=== PATIENT | male | born 1955 | race Caucasian/White ===

== ENCOUNTER 2020-04-21 07:39 | Outpatient (CLI) | payer OTHER, SELFPAY ==
[2020-04-21 08:20] LABS: Hematocrit 45.4 % (42.0-52.0); Hemoglobin 15.4 g/dL (14.0-18.0); Mean Corpuscular HGB Conc 33.9 g/dl (32-36); Mean Corpuscular Hemoglobin 31.5 pg (26-34); Mean Corpuscular Volume 92.8 fl (80-100); Mean Platelet Volume 9.6 fl (7.4-10.4); Platelet Count Result 200 k/mm3 (150-375); Red Blood Count 4.89 M/mm3 (4.6-6.20); White Blood Count 4.9 K/mm3 (4.5-10.0)
[2020-04-21 09:06] LABS: Alanine Aminotransferase 39 U/L (4-50); Albumin Level 4.6 g/dL (3.5-5.1); Alkaline Phosphatase 72 U/L (38-126); Aspartate Amino Transferase 39 U/L (17-59); Bilirubin,Total 0.3 mg/dL (0.2-1.3); Blood Urea Nitrogen 17 mg/dL (9-20); Calcium 9.4 mg/dL (8.4-10.2); Carbon Dioxide 30 mmol/L (22-30); Chloride 104 mmol/L (98-107); Cholesterol 118 mg/dL (0-200); Estimated Glomerular Filt Rate > 60; Glucose 112 mg/dL (75-110); HDL Direct 56 mg/dL; Potassium 4.7 mmol/L (3.4-5.0); Sodium 139 mmol/L (137-145); Triglycerides 70 mg/dL (<150)
[2020-04-21 09:17] LABS: LDL Cholesterol Direct 48 mg/dL
[2020-04-21 09:35] LABS: Prostate Specific Antigen 1.3 ng/mL (< OR = 4.0)
== END 2020-04-21 07:40 | disposition home or self-care (01) ==
PROVIDERS: PCP Family Medicine; Visit Provider Physician Assistant Medical
DX: Z12.5 Encounter for screening for malignant neoplasm of prostate (principal); I10 Essential (primary) hypertension; E78.2 Mixed hyperlipidemia
CPT/HCPCS: 36415; 80053; 80061; 84153; 85027; G0103

== ENCOUNTER → 2020-09-05 12:52 | Outpatient (CLI) | payer OTHER, SELFPAY ==
--- NOTE | ~2020-09-05 | XR_ITS ---
EXAMINATION: XR lumbar spine 2-3V DATE: 09/05/2020 13:12 INDICATION: Lumbar ago with sciatica, left side TECHNIQUE: Anteroposterior and lateral views of the lumbar spine, and cone-down lateral view of the l umbosacral junction were obtained. COMPARISON: None. FINDINGS: Lumbar levocurvature is noted. There is no fracture. There are 2 mm of anterolisthesis of L 3 on L4. The vertebral body heights are maintained. There is moderate loss of intervertebral disc spa ce height at L4-5 and L5-S1. There is severe facet osteoarthritis of the lower lumbar spine. Small de generative osteophytes project from the anterior endplates of multiple vertebral bodies. Calcified at herosclerosis is noted. The bowel gas pattern is normal. IMPRESSION: 1. Moderate lumbar spondylosis without acute findings. Reviewed, dictated and finalized at location A.
== END ==
PROVIDERS: PCP Family Medicine; Visit Provider Physician Assistant Medical
DX: M54.42 Lumbago with sciatica, left side (principal); G89.29 Other chronic pain; M47.816 Spondylosis without myelopathy or radiculopathy, lumbar region
CPT/HCPCS: 72100

== ENCOUNTER → 2020-09-08 06:58 | Outpatient (CLI) | payer OTHER, SELFPAY ==
--- NOTE | ~2020-09-08 | MR_ITS ---
EXAMINATION: MR lumbar spine wo con DATE: 09/08/2020 07:29 INDICATION: Lumbago with left-sided sciatica. TECHNIQUE: Magnetic resonance imaging (MRI) of the lumbar spine was performed without intravenous con trast. Sequences included sagittal T2-weighted FSE, sagittal T2-weighted FS FSE, sagittal T1-weighted FSE, and axial T2-weighted FSE. COMPARISON: Lumbar spine radiographs 09/05/2020 FINDINGS: There is 8 degrees levocurvature of lumbar spine. There is 3 mm anterolisthesis of L3 on L4 . There is mild chronic anterior wedging of T10 and T11 vertebral bodies. There is mildly decreased d isc height at L3-L4 and moderately decreased disc height at L4-L5. The distal spinal cord signal inte nsity is normal. The conus medullaris is at T12-L1. The following disc levels are specifically discus sed: L1-L2: There is a left foraminal protrusion. There is mild bilateral facet joint osteoarthritis. Ther e is mild left neural foraminal stenosis. There is no central canal stenosis. L2-L3: The disc is bulging. There is moderate bilateral facet joint osteoarthritis. There is mild farida ateral neural foraminal stenosis. There is mild central canal stenosis. L3-L4: The disc is bulging and has an annular fissure. There is severe bilateral facet joint osteoart hritis. There is moderate bilateral neural foraminal stenosis. There is moderate central canal stenos is. L4-L5: The disc is bulging and has an annular fissure. There is severe bilateral facet joint osteoart hritis. There is mild right and moderate left neural foraminal stenosis. There is mild central canal stenosis. L5-S1: The disc does not extend beyond the endplate margin. There is severe right and moderate left f acet joint osteoarthritis. There is no neural foraminal stenosis. There is no central canal stenosis. IMPRESSION: 1. Moderate lumbar spondylosis. Reviewed, dictated and finalized at location A.
== END ==
PROVIDERS: PCP Family Medicine; Visit Provider Physician Assistant Medical
DX: M54.42 Lumbago with sciatica, left side (principal); M47.896 Other spondylosis, lumbar region
CPT/HCPCS: 72148

== ENCOUNTER 2020-12-26 14:36 | Outpatient (CLI) | payer OTHER, SELFPAY ==
[2020-12-26 15:27] LABS: Hematocrit 48.5 % (42.0-52.0); Hemoglobin 16.2 g/dL (14.0-18.0); Mean Corpuscular HGB Conc 33.4 g/dl (32-36); Mean Corpuscular Hemoglobin 31.6 pg (26-34); Mean Corpuscular Volume 94.7 fl (80-100); Mean Platelet Volume 9.2 fl (7.4-10.4); Platelet Count Result 205 k/mm3 (150-375); Red Blood Count 5.12 M/mm3 (4.6-6.20); Red Cell Distribution Width 12.3 % (11.5-14.5); White Blood Count 7.3 K/mm3 (4.5-10.0)
[2020-12-26 15:39] LABS: Anion Gap 4 mmol/L (8-16); Blood Urea Nitrogen 28 mg/dL (9-20); Carbon Dioxide 34 mmol/L (22-30); Chloride 102 mmol/L (98-107); Estimated Glomerular Filt Rate > 60; Glucose 118 mg/dL (75-110); Potassium 4.7 mmol/L (3.4-5.0); Sodium 140 mmol/L (137-145)
[2020-12-26 16:10] LABS: Thyroid Stimulating Hormone 0.718 uIU/mL (0.465-4.680)
== END 2020-12-26 14:37 | disposition home or self-care (01) ==
PROVIDERS: PCP Family Medicine; Visit Provider Physician Assistant Medical
DX: I49.9 Cardiac arrhythmia, unspecified (principal)
CPT/HCPCS: 36415; 80048; 84443; 85027

== ENCOUNTER → 2021-09-21 15:02 | Outpatient (CLI) | payer OTHER, SELFPAY ==
--- NOTE | ~2021-09-21 | MR_ITS ---
EXAMINATION: MR lumbar spine wo [facility] EXAM DATE: 09/21/2021 16:36 INDICATION: Spondylolisthesis. TECHNIQUE: Multi-sequential, multiplanar MR images of the lumbar spine were obtained without contrast . Sagittal T1, T2, T2 fat saturation images. Axial T2 weighted images. Comparison is made to prior examination from 09/08/2020. FINDINGS: There is rudimentary L5-S1 disc. Mild to moderate loss of the L4-5 disc height, mild at L3- 4. There is 3 mm anterolisthesis L3 on L4. The vertebral bodies are otherwise aligned. The conus medu llaris terminates at the T12-L1 level and has normal signal intensity and morphology. There are no s uspicious marrow signal abnormalities. Paraspinal soft tissue is unremarkable. Mild lumbar levoscolio sis. Level by level evaluation: T12-L1: Disc does not extend beyond the endplate margin. Facet arthropathy: Mild. Neural foraminal stenosis: No stenosis. Central canal stenosis: No stenosis. L1-L2: Disc does not extend beyond the endplate margin. Facet arthropathy: Mild. Neural foraminal stenosis: No stenosis. Central canal stenosis: No stenosis. L2-L3: There is a mild diffuse disc bulge. Facet arthropathy: Mild to moderate. Neural foraminal stenosis: Mild to moderate right, mild left. Central canal stenosis: No stenosis. L3-L4: There is a moderate diffuse disc bulge. Facet arthropathy: Severe . Ligamentum flavum enlargement. Neural foraminal stenosis: Moderate to severe right, moderate left. Central canal stenosis: Moderate to severe. L4-L5: There is a mild to moderate diffuse disc bulge. Facet arthropathy: Moderate. Neural foraminal stenosis: Moderate bilateral. Central canal stenosis: Mild. L5-S1: There is a congenitally narrowed disc space. Facet arthropathy: Mild. Neural foraminal stenosis: Mild right. Central canal stenosis: No stenosis. Difficult to appreciate any significant interval change compared to 2019, although description of lev els may be slightly different. IMPRESSION: 1. L3-4 grade 1 anterolisthesis, moderate to severe central canal and right neural foraminal stenosi s. 2. Less spondylosis other levels. Reviewed, dictated and finalized at location B. IMPRESSION: 1. L3-4 grade 1 anterolisthesis, moderate to severe central canal and right ne ural foraminal stenosis. 2. Less spondylosis other levels.
== END ==
PROVIDERS: PCP Family Medicine
DX: M43.10 Spondylolisthesis, site unspecified (principal)
CPT/HCPCS: 72148

== ENCOUNTER → 2022-03-06 09:18 | Outpatient (CLI) | payer OTHER, SELFPAY ==
--- NOTE | ~2022-03-06 | XR_ITS ---
EXAMINATION: XR knee RT min 4V DATE: 03/06/2022 10:15 INDICATION: Unilateral primary osteoarthritis of the right knee TECHNIQUE: Four views of the right knee were obtained. COMPARISON: None. FINDINGS: Alignment is normal. No fracture or osteochondral lesion. There is mild joint space narrowi ng of the lateral compartment and the lateral patellofemoral compartment. No joint effusion/synovitis . Calcified atherosclerosis is noted. IMPRESSION: 1. Mild osteoarthritis. Reviewed, dictated and finalized at location A. IMPRESSION: 1. Mild osteoarthritis.
--- NOTE | ~2022-03-06 | XR_ITS ---
XR hip RT min 3V w AP pelvis DATE: 03/06/2022 10:15 INDICATION: Right hip pain, osteoarthritis TECHNIQUE: AP pelvis. AP and lateral views of right hip COMPARISON: None FINDINGS: There is rotatory mild levoscoliosis of the lumbar spine. Status post interbody and posterior spinal surgical fusion at L3-4. Severe degenerative disc disease at L4-5. 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 No pelvic fracture or bone destruction. The pubic symphysis and sacroiliac joints are intact. Hip joint spaces are symmetric and relatively well preserved. No fracture or dislocation, avascular n ecrosis or bone destruction of the right hip is detected. 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
== END ==
PROVIDERS: PCP Family Medicine; Visit Provider Family Medicine
DX: M16.11 Unilateral primary osteoarthritis, right hip (principal); M17.11 Unilateral primary osteoarthritis, right knee; Z98.1 Arthrodesis status; M51.36 Other intervertebral disc degeneration, lumbar region
CPT/HCPCS: 73502; 73564

== ENCOUNTER 2022-03-26 06:43 | Outpatient (CLI) | payer OTHER, SELFPAY ==
[2022-03-26 07:22] LABS: Hematocrit 40.6 % (42.0-52.0); Hemoglobin 12.3 g/dL (14.0-18.0); Mean Corpuscular HGB Conc 30.3 g/dl (32-36); Mean Corpuscular Hemoglobin 25.5 pg (26-34); Mean Corpuscular Volume 84.2 fl (80-100); Mean Platelet Volume 9.4 fl (7.4-10.4); Platelet Count Result 217 k/mm3 (150-375); Red Blood Count 4.82 M/mm3 (4.6-6.20); Red Cell Distribution Width 18.3 % (11.5-14.5); White Blood Count 5.7 K/mm3 (4.5-10.0)
[2022-03-26 07:33] LABS: Alanine Aminotransferase 25 U/L (4-50); Albumin Level 4.3 g/dL (3.5-5.1); Alkaline Phosphatase 82 U/L (38-126); Anion Gap 6 mmol/L (8-16); Aspartate Amino Transferase 33 U/L (17-59); Bilirubin,Total 0.3 mg/dL (0.2-1.3); Blood Urea Nitrogen 18 mg/dL (9-20); Calcium 8.4 mg/dL (8.4-10.2); Carbon Dioxide 28 mmol/L (22-30); Chloride 104 mmol/L (98-107); Cholesterol 185 mg/dL (0-200); Estimated Glomerular Filt Rate > 60; Glucose 125 mg/dL (65-110); HDL Direct 31 mg/dL; Potassium 4.6 mmol/L (3.4-5.0); Sodium 138 mmol/L (137-145); Triglycerides 195 mg/dL (<150)
[2022-03-26 07:44] LABS: LDL Cholesterol Direct 114 mg/dL
[2022-03-26 08:04] LABS: Thyroid Stimulating Hormone 0.601 uIU/mL (0.465-4.680)
[2022-03-26 12:21] LABS: Vitamin D 25 Hydroxy 43.1 ng/mL
== END 2022-03-26 06:44 | disposition home or self-care (01) ==
PROVIDERS: PCP Family Medicine; Visit Provider Nurse Practitioner Family
DX: E55.9 Vitamin D deficiency, unspecified (principal); I10 Essential (primary) hypertension; Z12.5 Encounter for screening for malignant neoplasm of prostate; E78.2 Mixed hyperlipidemia; Z13.29 Encounter for screening for other suspected endocrine disorder
CPT/HCPCS: 36415; 80053; 80061; 82306; 84153; 84443; 85027

== ENCOUNTER 2023-09-11 08:53 | Outpatient (CLI) | payer MEDICARE, SELFPAY ==
--- NOTE | ~2023-09-11 | XR_ITS ---
EXAMINATION: XR ribs BI 3V w CXR 2V DATE: 09/11/2023 09:42 INDICATION: Pleurodynia. TECHNIQUE: Frontal and lateral views of the chest and 2 views of the right ribs on 3 radiographs and 2 views of the left ribs on 3 radiographs were obtained. COMPARISON: CT abdomen and pelvis 04/03/2017 FINDINGS: CHEST TWO VIEWS: A calcified left lung nodule is consistent with old granulomatous disease. No pleura l effusion or pneumothorax. The heart size is normal. There is mild chronic anterior wedging of a mid thoracic vertebral bodies. There are changes of anterior and posterior fusion procedures in lumbar sp ine. BILATERAL RIBS: There is no rib fracture. IMPRESSION: 1. No rib fracture. Reviewed, dictated and finalized at location E. IMPRESSION: 1. No rib fracture.
== END 2023-09-11 08:54 ==
PROVIDERS: PCP Nurse Practitioner Family; Visit Provider Nurse Practitioner Family
DX: R07.81 Pleurodynia (principal); W11.XXXA Fall on and from ladder, initial encounter
CPT/HCPCS: 71046; 71110

== ENCOUNTER 2024-02-11 08:09 | Outpatient (CLI) | payer MEDICARE, OTHER, SELFPAY ==
--- NOTE | ~2024-02-11 | CT_ITS ---
CT Scan of the Chest without Contrast: Clinical Indication: Lung cancer screening, history of nicotine dependence Technique: Contiguous sections were acquired throughout the chest without intravenous contrast. Dose reduction technique was used on this scan by utilizing automated exposure control and iterative recon struction technique. The dose-length product (DLP) was 189.99 mGy-cm. Findings: There is no evidence of any significant mediastinal, hilar or axillary lymphadenopathy. Extensive cor onary artery calcifications are present. There is no evidence of pleural or pericardial effusion. The lungs are clear. No pulmonary nodules or infiltrates are noted. Images through the upper abdomen reveal no abnormalities. Impression: Lung RADS 1: Negative. 12 month follow-up screening CT advised. Reviewed, dictated and finalized at location . Impression: Lung RADS 1: Negative. 12 month follow-up screening CT advised.
== END 2024-02-11 08:10 | disposition home or self-care (01) ==
LOC: ANHIMG 08:12
PROVIDERS: PCP Family Medicine; Visit Provider Nurse Practitioner Family
DX: Z12.2 Encounter for screening for malignant neoplasm of respiratory organs (principal); Z87.891 Personal history of nicotine dependence
CPT/HCPCS: 71271

== ENCOUNTER 2025-06-25 14:06 | Emergency (ER) | payer MEDICARE, OTHER, SELFPAY ==
--- NOTE | ~2025-06-25 | CT_ITS ---
EXAMINATION: CT abdomen pelvis wo con DATE: 06/25/2025 15:53 INDICATION: lower abd pain, fever/chills, nausea and bloating TECHNIQUE: Computed tomography (CT) of the abdomen and pelvis was performed without intravenous contr ast. Automated exposure control and iterative reconstruction technique were employed. The dose-length product was 307.22 mGy-cm. COMPARISON: 04/03/2017. FINDINGS: Lower thorax: Moderate coronary artery calcifications. Small focus of tree-in-bud opacities in the de pendent and superior right lower lobe. Small focus of clustered air cysts in the dependent peripheral right lower lobe. Bilateral scar/atelectasis. Liver: Normal. Biliary/Gallbladder: Gallbladder is absent. No bile duct dilation. Pancreas: No mass or duct dilation. Mild peripancreatic edema. Spleen: Normal. Adrenals:Left adrenal adenoma, normal right adrenal gland. Kidneys: No suspicious mass, obstructing stone, or hydronephrosis. 6 mm right lower pole nonobstructi ng calcification. GI tract: Colonic wall thickening in the mid transverse colon. No small or large bowel dilation. Appe ndix not confidently visualized. Diverticulosis without diverticulitis. Mesentery/Peritoneum: Enlarged mesenteric lymph node. Suggestion of early fat halos surrounding centr al mesenteric nodes. Central mesenteric edema. Retroperitoneum: No mass. Atherosclerotic calcifications of intra-abdominal arterial vessels. Pelvis: Normal urinary bladder. Prostatomegaly with likely postsurgical change. Left inguinal pump. Soft Tissues: Small uncomplicated fat-containing left inguinal hernia Bones: No acute osseous finding. Uncomplicated appearing posterior and interbody fusion hardware at L3-4. IMPRESSION: Small focus of tree-in-bud opacities in the dependent right lower lobe, may represent minor aspiratio n or a small focus of infection. Peripheral cluster air cysts in the dependent right lower lobe, may represent a small focus of chroni c infectious/inflammatory change or small focus of honeycombing from early interstitial change. Central mesenteric edema and lymphadenopathy, suggestive of mesenteric panniculitis. Mild peripancreatic edema, in the absence of pancreatic laboratory abnormalities this is likely react yasir to the mesenteric process. Mid transverse colon wall thickening as can be seen with infectious, inflammatory, or ischemic coliti s. Reviewed, dictated and finalized at location K. IMPRESSION: Small focus of tree-in-bud opacities in the dependent right lower lobe, may rep resent minor aspiration or a small focus of infection. Peripheral cluster air cysts in the dependent right lower lobe, may represent a small focus of chronic infectious/inflammatory change or small focus of honeyc ombing from early interstitial change. Central mesenteric edema and lymphadenopathy, suggestive of mesenteric pannicul itis. Mild peripancreatic edema, in the absence of pancreatic laboratory abnormalitie s this is likely reactive to the mesenteric process. Mid transverse colon wall thickening as can be seen with infectious, inflammato ry, or ischemic colitis.
--- OUTSIDE RECORDS SUMMARY | 2025-06-25 14:09 | XMS_ITS | Encounter Summary ---
Author Organization [facility] Address [address] [place] [address] Care Team Providers Care Media Relations Director Name Role Phone Roberto Tran MD Primary Care Provider [phone] Encounter Details Date Type Department Care Team (Late st Contact Info) Description 10/09/2021 Prep for Procedure [place] Pre-Admission Testing [facility] [place], [place] [id number] Lino Marks MD [address] [facility] [address] [place] [address] Social History Tobacco Use Types Packs/Day Years Used Date Smoking Tobacco: Former Cigarettes 2 30 Smokeless Tobacco: Never Comments:quit cigs 5 years, now vapes with nicotine Alcohol Use Standard Drinks/Week Comments Not Currently 0 (1 standard drink = 0.6 oz pur e alcohol) Sex and Gender Information Value Date Recorded Sex Assigned at Not on file Legal Sex 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 No / Unsure 10/09/2021 10:16 AM GUSSET MAKER documented as of this encounter Functional Status * Calculated C-SSRS Risk Score (Lifetime/Recent) Answer Date of Assessment Author Status No Risk Indicated 10/09/2021 10:56 AM G[employer]SET MAKER Sonia Cortes RN Active * [place] Suicide Severity Rating Scale (Screener/Recent Self-Report) Question Answer Date of Assessment Author Status 1. Wish to be (Past 1 Month) No 10/09/2021 10:56 AM G[employer]SET MAKER Sonia Cortes RN Activ e 2. Non-Specific Active Suicidal Thoughts (Past 1 Month) No 10/09/2021 10:56 AM G[employer]SET MAKER Sonia Cortes RN Activ e 6. Suicidal Behavior (Lifetime) No 10/09/2021 10:56 AM G[employer]SET MAKER Sonia Cortes RN Activ e documented as of this encounter Plan of Treatment Not on file documented as of this encounter Results * CORONAVIRUS (COVID 19) (10/20/2021 9:15 AM GUSSET MAKER) SPEC DESCRIPTION NASAL 10/20/20 9:25 AM [facility] CORONAVIRUS SARS COV 2 PCR (RESP) NEGATIVE NEGATIVE 10/20/2021 7:12 PM [facility] Comment: THE SARS-CoV-2 TEST HAS BEEN AUTHORIZED BY THE FDA UNDER AN EUA FOR USE BY AUTHORIZED LABORATORIES. PERFORMED BY NUCLEIC ACID AMPLIFICATION PCR FIRST TEST NO 10/20/2021 9:25 AM [facility] EMPLOYED IN HEALTHCARE NO 10/20/2021 9:25 AM [facility] SYMPTOMATIC DEFINED BY CDC NO 10/20/2021 9:25 AM [facility] HOSPITALIZATION STATUS NO 10/20/2021 9:25 AM G[employer]SET MAKER [facility] PATIENT IN ICU NO 10/20/2021 9:25 AM G[employer]SET MAKER [facility] RESIDENT OF [facility] CARE NO 10/20/2021 9:25 AM G[employer]SET MAKER [facility] NASAL STRUCTURE / Unknown 10/20/2021 9:15 AM GUSSET MAKER us Lino Marks MD MICROBIOLOGY - GENERAL ORDER [place] Final Result [facility] [address] [place] [address], [facility] [address] [place] [address], documented in this encounter Visit Diagnoses Diagnosis Pre-op exam- Primary Preoperative examination, unspecified documented in this encounter Additional Health Concerns Infection Onset Date Last Indicated Resolved Time COVID-19 Rule Out 10/20/2021 10/20/2021 10/20/2021 7:13 PM G[employer]SET MAKER documented as of this encounter Care Teams Media Relations Director Relationship Specialty Start Date End Date Roberto Tran MD [address] [address] PCP - General FAMILY PRACTICE 10/09/21 documented as of this encounter
--- OUTSIDE RECORDS SUMMARY | 2025-06-25 14:09 | XMS_ITS | Clinical Summary ---
Author Organization [facility] Address [address] [place] [id number] Care Team Providers Care Metallographic Technician Name Role Phone Roberto Tran MD Primary Care Provider [phone] Allergies Active Allergy Reactions Criticality Noted Date Comments Bee Pollen Anaphylaxis High Bee stings Iodine Anaphylaxis High Shrimp Anaphylaxis High 08/10/2024 Medications traZODone (DESYREL) 50 mg tablet Take 1 tablet (50 mg total) by mouth nightly 1 9 Active VIIBRYD 10 mg tablet Take 1 tablet (10 mg total) by mouth every morning (Vilazodone) 0 9 Active vitamin E (AQUASOL E) 400 unit capsule Take 1 capsule (400 Units total) by mouth nightly Active clonazePAM (KlonoPIN) 0.5 mg tablet Take 1 tablet (0.5 mg total) by mouth nightly as needed for anxiety for up to 17 days 30 tablet 3 Active fluticasone propion-salmete roL (ADVAIR DISKUS) 250-50 mcg/dose diskus inhaler Inhale 1 puff 2 (two) times a day 3 Active montelukast (SINGULAIR) 10 mg tablet Take 1 tablet (10 mg total) by mouth nightly 3 Active celecoxib (CeleBREX) 50 mg capsule Take 1 capsule (50 mg total) by mouth 2 (two) times a day 4 Active fish oil/borage/flax /om3,6,9 1 (OMEGA 3-6-9 COMPLEX ORAL) Take 1 capsule by mouth nightly Active lisinopriL (PRINIVIL,ZESTR IL) 5 mg tablet TAKE 1 TABLET (5 MG TOTAL) BY MOUTH DAILY. 90 tablet 3 5 12/28/19 26 Active omeprazole (PriLOSEC) 40 mg capsule Take by mouth daily 4 Active HYDROcodone-jackie taminophen (NORCO) 7.5-325 mg per tablet TAKE 1 TABLET BY MOUTH EVERY 6 HOURS NEEDED FOR PAIN. FOLLOW UP EVERY 3 MONTHS 5 Active cyclobenzaprine (FLEXERIL) 10 mg tablet Take 1 tablet (10 mg total) by mouth 3 (three) times a day 5 Active albuterol HFA (PROVENTIL HFA,VENTOLIN HFA,PROAIR HFA) 90 mcg/actuation inhaler Inhale 2 puffs every 4 (four) hours as needed for shortness of breath or wheezing 5 Active albuterol 2.5 mg /3 mL (0.083 %) nebulizer solution Take 3 mL (2.5 mg total) by nebulization every 6 (six) hours as needed for wheezing or shortness of breath 5 Active Wegovy 0.5 mg/0.5 mL auto-injector Inject 0.5 mg under the skin every 7 days 5 Active metoprolol XL (TOPROL-XL) 50 mg extended release tablet Take 1 tablet (50 mg total) by mouth daily 90 tablet 3 5 05/10/20 26 Active Active Problems Problem Noted Date Diagnosed Date ED (erectile dysfunction) 08/24/2024 Other male erectile dysfunction 07/23/2024 Valvular heart disease 10/03/2023 Overview (10/03/2023): Mild TR on echo 11 January 2023. Acute blood loss anemia 01/07/2023 Acute retention of urine 01/05/2023 BPH with obstruction/lower urinary tract symptom s 12/06/2022 Benign prostatic hyperplasia with urinary obstru ction 11/13/2022 Overview (11/13/2022): Added automatically from request for surgery [id number] Occlusion of gallbladder 04/10/2017 Overview (04/19/2017): Gall bladder occluded Hypertension Overview (10/03/2023): On benazepril 10 b.i.d., Cardizem CD 240 mg daily and Toprol XL to 100 daily. Normal LVEF on echo 07 August 2021. Normal LVEF on echo 11 January 2023. Assessment & Plan (01/23/2022 8:30 AM CHARGE HISTOTECHNOLOGIST): Discussed that today's blood pressure is quite good on higher dose of Toprol XL. He is taking Toprol XL 75 in the morning and 25 in the evening because he thought it might help with his prostate problems--frequency and nocturia. There is no data on this and I advised him to take the Toprol XL 100 mg all at 1 time. He could take it in the morning or in the evening. Paroxysmal atrial fibrillation Overview (01/30/2024): On Xarelto 15 mg p.o. q.p.m.. Was on 20 mg daily. Normal LVEF on echo 11 January 2023. Assessment & Plan (01/23/2022 8:32 AM CHARGE HISTOTECHNOLOGIST): He will try to get records from primary care from the other hospital. Unfortunately, I could not find it on Care everywhere. Patient agreeable to getting another monitor for 2 weeks now to see how much AFib he has. He feels some kind of palpitations on a daily basis and he has cut back Xarelto to 15 mg daily because of a large bruise when he bumped his left upper extremity 1 time. If he has many episodes of atrial fibrillation, I may recommend that he goes back to 20 mg every p.m.. Indeed no bleeding issues on current dose of Xarelto. Assessment & Plan (07/20/2021 2:55 PM CDT): Apparently saw Dr. Lazcano in [facility] for atrial fibrillation. No echocardiogram was ever done even though it was scheduled. So, we should get an echocardiogram as soon as possible. Patient can tell when he is in atrial fibrillation as he feels a rapid heart rate. No dizziness, chest pain, shortness of breath or syncope with the episodes. We discussed his Rodolfo Vasc score of 2: Age, hypertension. He was worried about a persistent bruise on the left upper extremity. Otherwise, no rectal bleeding or persistent nose bleeds. Gross hematuria Coagulopathy Encounters Date Type Department Care Team Description 05/26/2025 10:15 AM CDT Office Visit [facility] [address] [facility] [address] [place] [id number] Jacqui Scott PA Rotator cuff insufficiency of left shoulder (Primary Dx); Primary osteoarthritis of left shoulder 05/07/2025 10:15 AM CDT Office Visit [facility] [employer] at [address] [place] [address] Jannette Almanzar NP Paroxysmal atrial fibrillation (HCC) (Primary Dx); Hypertension, unspecified type; Diastolic dysfunction 04/28/2025 Telephone [facility] [facility] at [address] [place] [address] Nicole Gil MA from Last 3 Months Surgical History Surgery Date Site/Laterality Comments APPENDECTOMY Appendectomy CHOLECYSTECTOMY SPINE SURGERY lumbar fusion L4 CARDIAC CATHETERIZATION COLONOSCOPY HERNIA REPAIR UHR HYDROCELE EXCISION / REPAIR 11/25/1972 - 11/24/1973 Right SINUS SURGERY deviated septum, uvla removed and T&A, soft palate TRANSURETHRAL RESECTION OF PROSTATE 12/06/2022 EXPLORATORY LAPAROTOMY 01/06/2023 repair of bladder perforation CARDIAC ELECTROPHYSIOLOGY MAPPING AND ABLATION 11/25/2022 - 11/24/2023 Medical History Medical History Date Comments Hx Other Medical Rt Hydrocoele Kidney stone Hypertension Hypercholesteremia GERD (gastroesophageal reflux disease) Depression Arthritis At risk for injury associate d with transurethral resection of prostate (TURP) Former smoker Family History Medical History Relation Name Comments Hypertension Brother Hypertension; Cancer Father Cancer -; Cause of : Cancer - Hyperlipidemia Mother Hyperlipidemi a; Other Mother Alive and well; Relation Name Status Comments Brother Father Mother Social History Tobacco Use Types Packs/Day Years Used Date Smoking Tobacco: Former Cigarettes Q uit: 1999 Smokeless Tobacco: Never Tobacco Cessation:Counseling Given: Not Answered Comments:Quit smoking in April 28, 2024; Alcohol Use Standard Drinks/Week Comments No 0 (1 standard drink = 0.6 oz pur e alcohol) Social Connection and Isolat ion Panel [NHANES] Answer Date Recorded In a typical week, how many times do you talk on the phone with family, friends, or neighbors? More than three times a week 01/07/2023 How often do you get togethe r with friends or relatives? More than three times a week 01/07/2023 Attends Scientology Services Not on file 01/07 Active Member of Clubs or Organizations Not on f ile 01/07/2023 Attends Club or Organization Meetings Not on wilfrid e 01/07/2023 Are you , , di vorced, , never , or living with a partner? 01/07/2023 AUDIT-C Answer Date Recorded Q1: How often do you have a drink containing alcohol? Never 05/26/2025 Q2: How many drinks containi ng alcohol do you have on a typical day when you are drinking? Patient does not drink Q3: How often do you have si x or more drinks on one occasion? Never 05/26/2025 Overall Financial Resource Strain (CARDIA) Answe r Date Recorded How hard is it for you to pa y for the very basics like food, housing, medical care, and heating? Not very hard 01/07/2023 Hunger Vital Sign Answer Date Recorded Within the past 12 months, y ou worried that your food would run out before you got the money to buy more. Never true 01/07/20 23 Within the past 12 months, t he food you bought just didn't last and you didn't have money to get more. Never true 01/07/2023 PRAPARE - Transportation Answer Date Re corded In the past 12 months, has l ack of transportation kept you from medical appointments or from getting medications? No 12/26 In the past 12 months, has l ack of transportation kept you from meetings, work, or from getting things needed for daily living? No 01/07/2023 Housing Stability Vital Sign Answer Pantera e Recorded In the last 12 months, was t here a time when you were not able to pay the mortgage or rent on time? No 01/07/2023 Number of Places Lived in the Last Year Not on f ile 01/07/2023 In the last 12 months, was t here a time when you did not have a steady place to sleep or slept in a nursing home (including now)? No 01/07/2023 Personal Safety Answer Date Recorded Have you ever been in or are you currently in a harmful physical or emotional relationship or is someone making you feel afraid or unsafe? Denies 08/24/2024 Sex and Gender Information Value Date Recorded Sex Assigned at Not on file Legal Sex Male 11:49 PM CHARGE HISTOTECHNOLOGIST Gender Identity Not on file Sexual Orientation Not on file Obstetrics History Last Filed Vital Signs Vital Sign Reading Time Taken Comments Blood Pressure 126/70 05/26/2025 10:12 AM CDT Pulse 75 05/26/2025 10:12 AM CDT Temperature 36.7 C (98 F) 2024 11:50 AM CDT Respiratory Rate 18 08/25/2024 6:57 AM CDT Oxygen Saturation 96% 08/25/2024 6:57 AM CDT Inhaled Oxygen Concentration - - Weight 87.1 kg (192 lb) 05/26/2025 10:12 AM CDT Height 170.2 cm (5' 7) 05/26/2025 10:12 AM CDT Body Mass Index 30.07 05/26/2025 10:12 AM CDT Plan of Treatment Health Maintenance Due Date Last Done Comments Colon Cancer Screening-Colonoscopy 1955 Depression Screening 1955 Hepatitis C Screening 1955 DTaP/Tdap/Td Vaccine (1 - Tdap) 1966 Hepatitis B Screening 1973 Zoster Vaccine (2 of 3) 11/08/2015 09/13/2015 Pneumococcal vaccine 65+ (2 of 2 - PPSV23) 12/20/2016 12/20/2015 Well Visit 65+ 2020 Prostate Cancer Screening-PSA 11/14/2024 11/14/2022 Influenza Vaccine (#1) 2025 7, 09/11/2016, 08/08/2016, Additional history exists Fall Risk Assessment 08/25/2025 08/25/2024 Abdominal Aortic Aneurysm (A AA) Screen Completed 01/08/2023, 01/06/2023 Medical Devices Implanted Type Area Horticulture Teacher Device Identifier Shelf Expiration Date Model / Serial / Lot [employer] Ams 700 Kit Accessory Penile Prosthesis [id number] - [id number] Implanted:Qty: 1 on 08/24/2024 by James Small MD at [facility] N/A: Penis [employer] Mile [id number] 07/06/2029 [id number] / / [id number] [employer] Ams 700 Lgx Ms Pump 18cm 3 Piece Inflatable Preconnect Infrapubic [id number] - [id number] Implanted:Qty: 1 on 08/24/2024 by James Small MD at [facility] N/A: Penis [employer] Mile [id number] 05/18/2026 [id number] / / [id number] [employer] Mile Ams 700 Ms Pump Preconnect Inflatable [place] Prosthesis 65ml [id number] - [id number] Implanted:Qty: 1 on 08/24/2024 by James Small MD at [facility] N/A: Penis [employer] Mile [id number] 04/21/2026 [id number] / / [id number] Procedures Procedure Name Priority Date/Time Associated Diagnosis Comments CT ARTHROCENTESIS ASPIR&/INJ MAJOR JT/BURSA W/O US Routine 05/26/2025 10:15 AM CDT 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 CT ABDOMEN PELVIS WO CONTRAST IP Routine 01/08/2023 1:52 PM CHARGE HISTOTECHNOLOGIST PSA DIAGNOSTIC Routine 11/14/2022 11:55 AM CHARGE HISTOTECHNOLOGIST Elevated PSA from Last 3 Months or Most Recently Relevant to Health Maintenance Results * CT ARTHROCENTESIS ASPIR&/INJ MAJOR JT/BURSA W/O US (05/26/2025 10:15 AM CDT) Narrative Jacqui Scott PA - 05/26/2025 10:15 AM CDT Jacqui Scott PA 05/26/2025 11:10 AM Large Joint (Hip, Knee, Shoulder) Injection: L subacromial bursa Performed by: Jacqui Scott PA Authorized by: Jacqui Scott PA Large Joint Injection/Aspiration: Consent Given by: Patient Site marked: the procedure site was marked Timeout: prior to procedure the correct patient, procedure, and site was verified Verbal consent obtained: Yes Supporting Documentation: Indications: Pain Procedure Details: Location: Shoulder Site: L subacromial bursa Prep: patient was prepped and draped in usual sterile fashion Prep: patient was prepped using a clean technique Needle Size: 22 G Approach: Posterior Ultrasound guided: No Fluroscopic guidance: No Medications: 80 mg methylPREDNISolone acetate 80 mg/mL; 3 mL lidocaine 20 mg/mL (2 %) Patient tolerance: Patient tolerated the procedure well with no immediate complications us Jacqui [facility] IN CLINIC/BEDSIDE HOME [facility] Final Result * CT Abdomen Pelvis WO Contrast (01/08/2023 1:52 PM CHARGE HISTOTECHNOLOGIST) Anatomical Region Laterality Modality Body N/A Computed Tomogra phy 01/08/2023 3:03 PM CHARGE HISTOTECHNOLOGIST Impressions 01/08/2023 3:03 PM CHARGE HISTOTECHNOLOGIST 1. DEPENDENT ATELECTASIS IN THE LUNG BASES AND TRACE BILATERAL PLEURAL EFFUSIONS. 2. CHOLECYSTECTOMY AND APPENDECTOMY. 3. AORTIC ATHEROSCLEROSIS. 4. SMALL AMOUNT OF FREE AIR IN THE ABDOMEN WHICH HAS SIGNIFICANTLY IMPROVED FROM PREVIOUS. 5. SURGICAL DRAIN IN THE PELVIS. 6. MILDLY DILATED LOOPS OF SMALL BOWEL ARE CONSISTENT WITH AN ILEUS. 7. LOND[place] CATHETER IN PLACE. 8. POSTERIOR SPINAL FUSION AT L3-L4. Electronically signed by: Sin Contreras M.D. Narrative 01/08/2023 3:03 PM CHARGE HISTOTECHNOLOGIST EXAMINATION: CT ABDOMEN PELVIS WO CONTRAST DATE: 01/08/2023 1:05 PM HISTORY: Abdominal pain. TECHNIQUE: Transaxial computed tomographic images of the abdomen and pelvis were obtained without the administration of intravenous contrast. Multiplanar coronal and sagittal images were reformatted. COMPARISON: 01/06/2023 FINDINGS: Scans through the lung bases demonstrate dependent atelectasis in both lower lobes. There are trace bilateral pleural effusions. The liver, pancreas and spleen appear normal. The gallbladder has been removed. A small amount of free air in the abdomen has significantly improved from previous. The kidneys and adrenal glands appear normal. No evidence of retroperitoneal adenopathy. There are atherosclerotic changes in the abdominal aorta. The appendix has been removed. There is a surgical drain in the pelvis. There are mildly dilated loops of small bowel. Findings are most suggestive of an ileus. No inflammatory lesion is seen. There is a London catheter in the urinary bladder. There has been posterior spinal fusion at L3-L4. Procedure Note Sin Contreras MD - 01/08/2023 EXAMINATION: CT ABDOMEN PELVIS WO CONTRAST DATE: 01/08/2023 1:05 PM HISTORY: Abdominal pain. TECHNIQUE: Transaxial computed tomographic images of the abdomen and pelvis were obtained without the administration of intravenous contrast. Multiplanar coronal and sagittal images were reformatted. COMPARISON: 01/06/2023 FINDINGS: Scans through the lung bases demonstrate dependent atelectasis in both lower lobes. There are trace bilateral pleural effusions. The liver, pancreas and spleen appear normal. The gallbladder has been removed. A small amount of free air in the abdomen has significantly improved from previous. The kidneys and adrenal glands appear normal. No evidence of retroperitoneal adenopathy. There are atherosclerotic changes in the abdominal aorta. The appendix has been removed. There is a surgical drain in the pelvis. There are mildly dilated loops of small bowel. Findings are most suggestive of an ileus. No inflammatory lesion is seen. There is a London catheter in the urinary bladder. There has been posterior spinal fusion at L3-L4. IMPRESSION: 1. DEPENDENT ATELECTASIS IN THE LUNG BASES AND TRACE BILATERAL PLEURAL EFFUSIONS. 2. CHOLECYSTECTOMY AND APPENDECTOMY. 3. AORTIC ATHEROSCLEROSIS. 4. SMALL AMOUNT OF FREE AIR IN THE ABDOMEN WHICH HAS SIGNIFICANTLY IMPROVED FROM PREVIOUS. 5. SURGICAL DRAIN IN THE PELVIS. 6. MILDLY DILATED LOOPS OF SMALL BOWEL ARE CONSISTENT WITH AN ILEUS. 7. LOND[place] CATHETER IN PLACE. 8. POSTERIOR SPINAL FUSION AT L3-L4. Electronically signed by: Sin Contreras M.D. us Deidre Rodriguez MD IMG CT PROCEDURES Final Resul t * PSA diagnostic (11/14/2022 11:55 AM CHARGE HISTOTECHNOLOGIST) PSA-Total 0.88 <=5.40 ng/mL JAROD VALLEJO Comment: Interpretive Data AGE SEX REFERENCE INTERVAL 0 minutes-150 years Female None 0 minutes-49 years Male None 50-59 years Male 0-3.90 60-69 years Male 0-5.40 70-79 years Male 0-6.20 80-150 years Male 0-6.20 The Filiberto PSA Total assay procedure was used. Results from different manufacturers or methods may not be comparable. Serial testing should be performed using the same method. Current interpretive data last revised 22. Blood 11/14/2022 11:5 5 AM CHARGE HISTOTECHNOLOGIST 11/14/2022 11:55 AM CHARGE HISTOTECHNOLOGIST James Small MD LAB BLOOD ORDERABLES nal Result JAROD [id number] [address] Department [place] [address] from Last 3 Months or Most Recently Relevant to Health Maintenance Insurance MEDICARE COMMERCIAL GENERIC MEDICARE [place] [id number] H & W MCR SUPPLEMENT Advance Directives For more information, please contact: [phone] * Full Code (Latest Code Status on File) Date Activated Date Inactivated Comments 08/24/2024 12:18 PM 08/25/2024 2:53 PM * Full Code Date Activated Date Inactivated Comments 01/05/2023 8:07 AM 01/14/2023 7:38 PM * Full Code Date Activated Date Inactivated Comments 12/06/2022 11:29 AM 12/07/2022 7:16 PM Care Teams Metallographic Technician Relationship Specialty Start Date End Date Roberto Tran MD PCP - General Family Medicine 05/20/23
--- OUTSIDE RECORDS SUMMARY | 2025-06-25 14:09 | XMS_ITS | Clinical Summary ---
Author Organization [facility] Address [address] [place] [address] Care Team Providers Care Baker Head Name Role Phone Roberto Tran MD Primary Care Provider [phone] Allergies Active Allergy Reactions Criticality Noted Date Comments Bee Pollen Other (see comment) 10/09/2021 Reaction: Unknown, Iodine Other (see comment) 10/09/2021 Reaction: unknown, Medications albuterol sulfate HFA 108 (90 Base) MCG/ACT inhaler Inhale 1 puff into the lungs daily. 08/23/2021 Active benazepril 10 MG tablet Take 1 tablet by mouth 2 (two) times a day. 10/02/2021 Active clonazePAM 0.5 MG tablet Take 1 tablet by mouth daily as needed. 08/07/2021 Active dutasteride 0.5 MG capsule Take 1 capsule by mouth daily. 10/01/2021 Active Eszopiclone 3 MG Tab Take 1 tablet by mouth nightly. 07/24/2021 Active furosemide 20 MG tablet Take 1 tablet by mouth daily. 07/03/2021 Active gabapentin 800 MG tablet Take 1 tablet by mouth 3 (three) times a day. 09/16/2021 Active metoprolol succinate ER 50 MG 24 hr tablet Take 1 tablet by mouth daily. 06/23/2021 Active MOVANTIK 25 MG tablet Take 1 tablet by mouth daily. 07/07/2021 Active omeprazole 40 MG capsule Take 1 capsule by mouth daily. 09/18/2021 Active rosuvastatin 20 MG tablet Take 1 tablet by mouth daily. 03/19/2021 Active tadalafil 5 MG tablet Take 1 tablet by mouth daily. 07/31/2021 Active tamsulosin 0.4 MG Cap Take 1 capsule by mouth nightly. 08/07/2021 Active traZODone 50 MG tablet Take 1 tablet by mouth daily. 08/18/2021 Active valACYclovir 500 MG tablet Take 1 tablet by mouth nightly. 09/18/2021 Active VIIBRYD 10 MG tablet Take 1 tablet by mouth daily. 08/01/2021 Active Echinacea 500 MG Cap Take 1 capsule by mouth daily. Active cetirizine 10 MG chewable tablet Chew 10 mg by mouth daily. Active Multiple Vitamin (MULTIVITAMIN ADULT OR) Active senna-docusate 8.6-50 MG tablet Take 1 tablet by mouth daily. 60 tablet 1 10/23/2021 Active HYDROcodone-jackie taminophen 5-325 MG tabletIndicatio ns:Chronic Pain,post op Take 1-2 tablets by mouth every 4 (four) hours as needed for Pain. Indications: Chronic Pain, post op 65 tablet 10/23/2021 Active Active Problems No known active problems Family History Medical History Relation Comments Cancer Father Hypertension Father DC Father Hypertension Mother Relation Status Comments Brother Alive Father mi Mother Son Alive Social History Tobacco Use Types Packs/Day Years Used Date Smoking Tobacco: Former Cigarettes 2 30 Smokeless Tobacco: Never Comments:quit cigs 5 years, now vapes with nicotine Alcohol Use Standard Drinks/Week Comments Not Currently 0 (1 standard drink = 0.6 oz pur e alcohol) Sex and Gender Information Value Date Recorded Sex Assigned at Not on file Legal Sex Male 9:51 PM IMPORT/EXPORT CLERK Gender Identity Not on file Sexual Orientation Not on file Last Filed Vital Signs Vital Sign Reading Time Taken Comments Blood Pressure 183/106 11/14/2021 12:47 PM IMPORT/EXPORT CLERK Pulse 80 11/14/2021 12:47 PM IMPORT/EXPORT CLERK Temperature 36.6 C (97.9 F) 11/14/2021 12:47 PM IMPORT/EXPORT CLERK Respiratory Rate 18 11/14/2021 12:4 7 PM IMPORT/EXPORT CLERK Oxygen Saturation 99% 11/14/2021 12: 47 PM IMPORT/EXPORT CLERK Inhaled Oxygen Concentration - - Weight 95.7 kg (210 lb 15.7 oz) 021 12:47 PM IMPORT/EXPORT CLERK Height 175.3 cm (5' 9) 11/14/2021 12:4 7 PM IMPORT/EXPORT CLERK Body Mass Index 31.16 11/14/2021 12:47 PM IMPORT/EXPORT CLERK Plan of Treatment Health Maintenance Due Date Last Done Comments Colorectal Cancer Screening Colonoscopy (10 Years) 1955 Hepatitis C 1973 DTaP, Tdap and Td Vaccines ( 1 - Tdap) 1974 Zoster Vaccines (2 of 3) 11/08/2015 09/13/2015 Pneumococcal Vaccine: 50+ Ye ars (2 of 2 - PPSV23) 12/20/2016 12/20/2015 COVID-19 Vaccine (1 - 2023-2 5 season) 2024 RSV Immunization or 60+ Years (1 - 1-dose 75+ series) 2030 Meningococcal B Vaccine Aged Out No l onger eligible based on patient's age to complete this topic Meningococcal Vaccine Aged Out No kenney doe eligible based on patient's age to complete this topic RSV Immunizations Under 20 Months Aged Out No longer eligible based on patient's age to complete this topic Goals Goal Patient Goal Type Associated Problems Recent Progress Patient-Stated? Author Safety - demonstrates understanding of home safety measures General No Marisela Gustafson RN Medical Devices Implanted Type Area Towel Cabinet Repairer Device Identifier Shelf Expiration Date Model / Serial / Lot Sst Tl Set Screw Implanted:Qty: 4 on 10/23/2021 by Lino Marks MD at [facility] N/A: Spine Lumbar NEW AGE MEDICAL OR-SETSCRE W / / Sst-Tl 6.5x50 Screw Implanted:Qty: 4 on 10/23/2021 by Lino Marks MD at [facility] N/A: Spine Lumbar NEW AGE MEDICAL PA-[id number] 0 / / F3d Straight Implanted:Qty: 2 on 10/23/2021 by Lino Marks MD at [facility] N/A: Spine Lumbar NEW AGE MEDICAL [id number] 11/09/2025 [id number] / / [id number] Sst 50 Billy Implanted:Qty: 2 on 10/23/2021 by Lino Marks MD at [facility] N/A: Spine Lumbar NEW AGE MEDICAL 55-IA-5 0 / / Explanted Type Area Towel Cabinet Repairer Device Identifier Shelf Expiration Date Model / Serial / Lot Bur Drill Neuro Benita 3.0mm X 3.8mm - [id number] Explanted:Qty: 1 on 10/23/2021 at [facility] Drill N/A: Spine Lumbar [employer] DIV BENITA VERONICA [id number] / / [facility] Advance Directives * Full Code (Latest Code Status on File) Date Activated Date Inactivated Comments 10/23/2021 4:20 PM 10/24/2021 4:29 PM Care Teams Baker Head Relationship Specialty Start Date End Date Roberto Tran MD [address] [place] [address] PCP - General FAMILY PRACTICE 10/09/21
--- OUTSIDE RECORDS SUMMARY | 2025-06-25 14:09 | XMS_ITS | Continuity of Care Document ---
Author Organization [facility] Address [address] [place] [address] [place] [address] Phone Care Team Providers Care Tool Mechanic Name Role Phone Calos Silva MD Unavailable Unavailable Advance Directives Directive Yes / No Effective Date File Name No Information Encounters Encounter Description Practice Location Reason(s) For Visit Diagnoses Date Provider Providers Copied on Encounter Formerly [facility], [address] [place], [place], [id number], [place] tel:[phone] SEC Rey TALLEY Professional No Information 0-200 5 Shira Live. [address] [facility] [address], [place], [place], [id number], [place]. tel:[phone] Family History Family Member Type Diagnosis Age At Onset No Information Payers Payer name Insurance type Covered democrat ID Authoriza tion(s) [employer] SOI CI [id number] Social History Type Description Quantity Date Captured [...]
--- OUTSIDE RECORDS SUMMARY | 2025-06-25 14:09 | XMS_ITS | Referral Summary ---
Author Organization [facility] Address [address] [place] [id number] Care Team Providers Care Stock Handler Floorperson Name Role Phone Roberto Tran MD Primary Care Provider [phone] Encounters Date Type Department Care Team Description 05/26/2025 10:15 AM CDT Office Visit [facility] Medicine [address] [facility] [address] [place] [phone] Jacqui Scott PA Rotator cuff insufficiency of left shoulder (Primary Dx); Primary osteoarthritis of left shoulder 05/07/2025 10:15 AM CDT Office Visit [facility] at [address] [place] [phone] Jannette Almanzar NP Paroxysmal atrial fibrillation (HCC) (Primary Dx); Hypertension, unspecified type; Diastolic dysfunction 04/28/2025 Telephone [place] [facility] at [address] [place] [phone] Nicole Gil MA from Last 3 Months Allergies Active Allergy Reactions Criticality Noted Date [...] (11/13/2022): Added automatically from request for surgery [id number] Occlusion of gallbladder 04/10/2017 Overview (04/19/2017): Gall bladder occluded Hypertension Overview (10/03/2023): On benazepril 10 b.i.d., Cardizem CD 240 mg daily and Toprol XL to 100 daily. Normal LVEF on echo 07 August 2021. Normal LVEF on echo 11 January 2023. Assessment & Plan (01/23/2022 8:30 AM ASPHALT DAUBER): Discussed that today's blood pressure is quite [...] 2023. Assessment & Plan (01/23/2022 8:32 AM ASPHALT DAUBER): He will try to get records from [...] PM CDT): Apparently saw Dr. Lazcano in [facility] for atrial fibrillation. No echocardiogram was ever [...] or persistent nose bleeds. Gross hematuria Coagulopathy Social History Tobacco Use Types Packs/Day Years [...] than three times a week 01/07/2023 Attends Shinto Services Not on file 01/07 Active Member [...] place to sleep or slept in a intermediate (including now)? No 01/07/2023 Personal Safety Answer Date Recorded Have you ever been in or are you currently in a harmful physical or emotional relationship or is someone making you feel afraid or unsafe? Denies 08/24/2024 Sex and Gender Information Value Date Recorded Sex Assigned at Not on file Legal Sex Male 11:49 PM ASPHALT DAUBER Gender Identity Not on file Sexual Orientation [...] 05/26/2025 10:12 AM CDT Plan of Treatment Not on file Medical Devices Implanted Type Area Body Finisher Device Identifier Shelf Expiration Date Model / Serial / Lot [employer] Mile Ams 700 Kit Accessory Penile Prosthesis [id number] - [id number] Implanted:Qty: 1 on 08/24/2024 by James Small MD at [facility] N/A: Penis [employer] Mile [id number] 07/06/2029 [id number] / / [id number] [employer] Mile Ams 700 Lgx Ms Pump 18cm 3 Piece Inflatable Preconnect Infrapubic [id number] - [id number] Implanted:Qty: 1 on 08/24/2024 by James Small MD at [facility] N/A: Penis [employer] Mile [id number] 05/18/2026 [id number] / / [id number] [employer] Mile Ams 700 Ms Pump Preconnect Inflatable [place] Prosthesis 65ml [id number] - [id number] Implanted:Qty: 1 on 08/24/2024 by James Small MD at [facility] N/A: Penis [employer] Mile [id number] 04/21/2026 [id number] / / [id number] Procedures Procedure Name Priority Date/Time Associated Diagnosis Comments ND ARTHROCENTESIS ASPIR&/INJ MAJOR JT/BURSA W/O US Routine 05/26/2025 10:15 AM CDT 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 CT ABDOMEN PELVIS WO CONTRAST IP Routine 01/08/2023 1:52 PM ASPHALT DAUBER PSA DIAGNOSTIC Routine 11/14/2022 11:55 AM ASPHALT DAUBER Elevated PSA from Last 3 Months or Most Recently Relevant to Health Maintenance Results * ND ARTHROCENTESIS ASPIR&/INJ MAJOR JT/BURSA W/O US (05/26/2025 [...] the procedure well with no immediate complications Jacqui LOVETT IN CL[facility]IC[facility]IDE [facility] Final Result * CT Abdomen Pelvis WO Contrast (01/08/2023 1:52 PM ASPHALT DAUBER) Anatomical Region Laterality Modality Body N/A Computed Tomogra phy 01/08/2023 3:03 PM ASPHALT DAUBER Impressions 01/08/2023 3:03 PM ASPHALT DAUBER 1. DEPENDENT ATELECTASIS IN THE LUNG BASES [...] Sin Contreras M.D. Narrative 01/08/2023 3:03 PM ASPHALT DAUBER EXAMINATION: CT ABDOMEN PELVIS WO CONTRAST DATE: [...] L3-L4. Electronically signed by: Sin Contreras M.D. Deidre Rodriguez MD IMG CT PROCEDURES Final Resul t * PSA diagnostic (11/14/2022 11:55 AM ASPHALT DAUBER) PSA-Total 0.88 <=5.40 ng/mL JAROD VALLEJO Comment: [...] revised 22. Blood 11/14/2022 11:5 5 AM ASPHALT DAUBER 11/14/2022 11:55 AM ASPHALT DAUBER James Small MD LAB BLOOD ORDERABLES [facility] Result JAROD VALLEJO [address] [place] [address] from Last 3 Months or Most Recently Relevant to Health Maintenance Insurance MEDICARE COMMERCIAL GENERIC MEDICARE LOCAL [facility] W MCR SUPPLEMENT Advance Directives For more information, please contact: [phone] * Full Code (Latest Code Status on File) Date Activated Date Inactivated Comments 08/24/2024 12:18 PM 08/25/2024 2:53 PM * Full Code Date Activated Date Inactivated Comments 01/05/2023 8:07 AM 01/14/2023 7:38 PM * Full Code Date Activated Date Inactivated Comments 12/06/2022 11:29 AM 12/07/2022 7:16 PM Care Teams Stock Handler Floorperson Relationship Specialty Start Date End Date Roberto Tran MD PCP - General Family Medicine 05/20/23
[2025-06-25 14:15] VITALS: BP 116/66; PULSE 85; RESP 16; TEMP 36.4; O2SAT 98
[2025-06-25 15:25] LABS: Hematocrit 45.0 % (42.0-52.0); Hemoglobin 15.2 g/dL (14.0-18.0); Immature Granulocyte Percent A 1.1 % (0-0.5); Lymphocytes Absolute Auto 2.22 K/mm3 (0.9-3.2); Mean Corpuscular HGB Conc 33.8 g/dl (32-36); Mean Corpuscular Hemoglobin 31.0 pg (26-34); Mean Corpuscular Volume 91.8 fl (80-100); Nucleated Red Blood Cells Absolute Auto 0.000 K/mm3 (0.0-0.012); Nucleated Red Blood Cells Perc 0.0 % (0.0-0.2); Platelet Count Result 221 k/mm3 (150-375); Red Blood Count 4.90 M/mm3 (4.6-6.20); White Blood Count 7.4 K/mm3 (4.5-10.0)
[2025-06-25 15:27] LABS: Add Urine Microscopic? NO; Appearance Urine Clear (Clear); Glucose Urine UA Negative (Negative); Leukocyte Esterase Ur Negative LEU/UL (Negative); Nitrate Urine Negative (Negative); Specific Grav Ur 1.008 (1.001-1.035)
--- NOTE | 2025-06-25 15:34 | ED_ITS ---
HPI - Nausea/Vomiting/Diarrhea General Chief complaint: Nausea/Vomiting/Diarrhea Stated complaint: N/V/D, abd pain, elevated bp Time Seen by Provider: 06/25/25 15:03 History of Present Illness HPI Narrative: 69-year-old male presenting to the emergency depart with chief complaints of lower abdominal pain, nausea, vomiting, diarrhea and fever and chills subjectively. Symptoms going on for last several days. States he has also been working in the hot sun getting some heat exhaustion. States he feels dehydrated. No urinary complaints. No trauma or injury. History of appendectomy and cholecystectomy in childhood. No abnormal history of diverticulitis or abnormal colonoscopies. Was otherwise in his normal state of health recently. He states he tried some electrolyte solutions at home and did feel better but now feels slightly worse. Endorses nausea and has been eating a bland diet and tolerating this but still having watery diarrhea. No recent antibiotic use. Related Data Home Medications ?Medication ?Instructions ?Recorded ?Confirmed ?Last Taken ?Type vilazodone 10 mg tablet (Viibryd) 10 mg PO DAILY 10/13/19 05/05/25 Unknown History cetirizine 10 mg capsule (All Day 10 mg PO DAILY PRN 04/05/21 05/05/25 Unknown History Allergy (cetirizine)) echinacea 380 mg capsule 380 mg PO DAILY 04/05/21 05/05/25 Unknown History trazodone 50 mg tablet 50 mg PO QHS PRN 04/05/21 05/05/25 Unknown History vitamin E (dl, acetate) 180 mg 45 mg PO DAILY 04/05/21 05/05/25 Unknown History (400 unit) capsule metoprolol succinate 50 mg 100 mg PO DAILY 02/22/22 05/05/25 Unknown History tablet,extended release 24 hr clonazepam 0.5 mg tablet 0.5 mg PO DAILY PRN 06/26/22 05/05/25 Unknown History turmeric 400 mg capsule 1,400 mg PO BID 01/30/24 05/05/25 Unknown History Allergies Allergy/AdvReac Type Severity Reaction Status Date / Time venom-honey bee Allergy Severe CARRIES Verified 06/25/25 14:24 EPI PEN levofloxacin Allergy Mild Unknown Verified 06/25/25 14:24 iodine Allergy Unknown Unknown Verified 06/25/25 14:24 Review of Systems 2 Review of Systems: As reviewed above in HPI PMFSH Past Medical History Medical History Hand abrasion, non-infected RUQ abdominal pain Sinusitis Weight gain Elevated glucose Elevated glucose Mixed hyperlipidemia Perla catheter in place Erectile dysfunction BMI 34.0-34.9,adult Osteoarthritis of right knee Osteoarthritis of right hip BMI greater than 30 BMI 32.0-32.9,adult BMI 31.0-31.9,adult BMI 29.0-29.9,adult Tobacco abuse BMI 28.0-28.9,adult BPH associated with nocturia Chronic left shoulder pain Chronic radicular lumbar pain High potassium Swelling Therapeutic opioid induced constipation Surgical History Surgical History History of prostatectomy H/O Spinal surgery Family History Family History Father Hypertension Family history of malignant neoplasm Mother Hypertension Family history of coronary artery disease Sibling No problems noted. Social History Social History Smoking status: Former smoker Tobacco type: cigarettes and e-cigarettes/vaping Second hand tobacco smoke exposure: Yes Smoking end date: 06/28/24 Additional smoking assessment comments: 27 years Alcohol intake: never Substance use: never Substance use type: does not use Do You Feel Safe in your Home?: Yes Lack of Transportation: No Lack of Food: Never True Current Housing: I Have Housing Concerned About Future Housing: No Difficulty Paying Gas/Electric Bills: No Difficulty Paying for Meds: No Currently Unemployed: No Education: Trade/Vocational Certificate Difficulty w/ Childcare or Family Care: No Living arrangements: with family Occupation/Education: retired 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 Mucous membranes moist. NECK: Supple. CHEST: [Clear to auscultation. No respiratory distress.] HEART: [Regular rate and rhythm]. No murmur heard. [Normal peripheral pulses.] ABDOMEN: Soft, reproducible tenderness to palpation of the lower midline abdomen, no overlying skin changes. Slightly distended, [No rigidity or guarding] EXTREMITIES: Normal range of motion. [No edema.] SKIN: Warm, dry, no rash. NEURO: [No focal deficits]. Alert and oriented [x3.] PSYCH: [Normal mood and affect.] Course Vital Signs Vital signs: Vital Signs Temperature 36.4 C L 06/25/25 14:15 Pulse Rate 85 06/25/25 14:15 Respiratory Rate 16 06/25/25 14:15 Blood Pressure 116/66 06/25/25 14:15 Pulse Oximetry 98 06/25/25 14:15 Oxygen Delivery Room Air 06/25/25 14:15 Temperature 36.4 C L 06/25/25 14:15 Pulse Rate 85 06/25/25 14:15 Respiratory Rate 16 06/25/25 14:15 Blood Pressure 116/66 06/25/25 14:15 Pulse Oximetry 98 06/25/25 14:15 Oxygen Delivery Room Air 06/25/25 14:15 MDM - Nausea/Vomiting/Diarrhea MDM Narrative Medical decision making narrative: 69-year-old male presenting to the emergency depart with chief complaints of lower abdominal pain, nausea, vomiting, diarrhea and fever and chills subjectively. Symptoms going on for last several days. States he has also been working in the hot sun getting some heat exhaustion. States he feels dehydrated. No urinary complaints. No trauma or injury. History of appendectomy and cholecystectomy in childhood. No abnormal history of diverticulitis or abnormal colonoscopies. Was otherwise in his normal state of health recently. He states he tried some electrolyte solutions at home and did feel better but now feels slightly worse. Endorses nausea and has been eating a bland diet and tolerating this but still having watery diarrhea. No recent antibiotic use. Patient does have a mildly tender abdominal examination with some distension. No rigidity or peritonitis. No fever, no tachycardia blood pressure concerns. Patient is of a constellation of symptoms that does sound like potentially viral gastroenteritis versus bacterial gastroenteritis. Other differentials include diverticulitis, intra-abdominal abscess or infection less likely. Electrolyte disturbances from diarrhea nauseousness also possible. Rhabdomyolysis from dehydration and being outside in the hot sun possible. Workup ordered including CPK, CMP, CBC, CT scan without contrast given his anaphylactic allergy to iodine contrast. He was given fluid resuscitation Zofran with Bentyl and re-evaluated. Patient felt much better after fluids and Bentyl. No longer nauseous. Laboratory studies showed no leukocytosis or anemia. Normal platelet count. Electrolytes are unremarkable. Normal creatinine, normal glucose and LFTs. CPK is negative. Urinalysis shows no signs of active infection. CT scan shows some minor aspiration or small focus of infection in the right lower lobe dependent region. Unrelated but possibly from his nausea and vomiting episodes recently. He also has mesenteric edema and lymphadenopathy suggestive of mesenteric panniculitis with mild transverse colon thickening consistent with inflammatory infectious process. Given patient's diarrhea, nauseousness and bloating we will treat this with antibiotics for potential infectious causes although we did discuss with the patient at bedside other potentially modalities of treatment including anti-inflammatories if this is not infectious in nature. Patient comfortable with the plan and given a course of Augmentin as well as Bentyl and Zofran for symptom control. He will follow-up with GI and his primary care provider and given return precautions. Medical Records Attestation: I reviewed the patient's medical records. Lab Data Attestation: I reviewed the patient's lab results. 06/25/25 15:15 06/25/25 15:15 Labs: Lab Results 06/25/25 Range/Units 15:15 WBC 7.4 (4.5-10.0) K/mm3 RBC 4.90 (4.6-6.20) M/mm3 Hgb 15.2 (14.0-18.0) g/dL Hct 45.0 (42.0-52.0) % MCV 91.8 (80-100) fl MCH 31.0 (26-34) pg MCHC 33.8 (32-36) g/dl RDW 13.7 (11.5-14.5) % Plt Count 221 (150-375) k/mm3 MPV 8.9 (7.4-10.4) fl Immature Gran % (Auto) 1.1 H (0-0.5) % Neut % (Auto) 57.2 (45.5-73.1) % Lymph % (Auto) 30.1 (18.3-44.2) % Meriwether % (Auto) 9.3 H (2.6-8.5) % Eos % (Auto) 1.8 (0-4.4) % Baso % (Auto) 0.5 (0.2-1.2) % Lymph # (Auto) 2.22 (0.9-3.2) K/mm3 Meriwether # (Auto) 0.7 H (0.1-0.6) K/mm3 Eos # (Auto) 0.1 (0-0.3) K/mm3 Baso # (Auto) 0.0 (0.0-0.1) K/mm3 Abs Immat Gran (auto) 0.08 H (0.00-0.031) K/mm3 Absolute Neuts (auto) 4.2 (1.3-6.7) K/mm3 Absolute Nucleated RBC 0.000 (0.0-0.012) K/mm3 Nucleated RBC % 0.0 (0.0-0.2) % Sodium 138 (137-145) mmol/L Potassium 4.1 (3.4-5.0) mmol/L Chloride 104 (98-107) mmol/L Carbon Dioxide 25 (22-30) mmol/L Anion Gap 9 (4-12) mmol/L BUN 14 (9-20) mg/dL Creatinine 0.76 (0.7-1.3) mg/dL Estim Creat Clear Calc 77 ml/min Estimated GFR > 60 (59 - ) Glucose 103 (65-110) mg/dL Calcium 8.8 (8.4-10.2) mg/dL Total Bilirubin 0.3 (0.2-1.3) mg/dL AST 34 (17-59) U/L ALT 36 (6-50) U/L Alkaline Phosphatase 88 (38-126) U/L Total Creatine Kinase 53 L (55-170) U/L Total Protein 7.2 (6.3-8.2) g/dL Albumin 4.2 (3.5-5.1) g/dL Lipase 81 (23-300) U/L Urine Color Yellow (Yellow) Urine Appearance Clear (Clear) Urine pH 5.5 (5.0-9.0) Ur Specific Hayward 1.008 (1.001-1.035) Urine Protein Negative (Negative) mg/dL Urine Glucose (UA) Negative (Negative) mg/dL Urine Ketones Negative (Negative) mg/dL Ur Blood (Man) Negative (Negative) Urine Nitrate Negative (Negative) Urine Bilirubin Negative (Negative) Urine Urobilinogen 0.2 (<2.0) mg/dL Leukocyte Esterase Rfl Negative (Negative) ANNABELLA/UL Imaging Data Attestation: I personally reviewed and interpreted this imaging study as follows: My impression: Impressions Abdomen/Pelvis CT 06/25/25 16:02 IMPRESSION: Small focus of tree-in-bud opacities in the dependent right lower lobe, may represent minor aspiration or a small focus of infection. Peripheral cluster air cysts in the dependent right lower lobe, may represent a small focus of chronic infectious/inflammatory change or small focus of honeycombing from early interstitial change. Central mesenteric edema and lymphadenopathy, suggestive of mesenteric panniculitis. Mild peripancreatic edema, in the absence of pancreatic laboratory abnormalities this is likely reactive to the mesenteric process. Mid transverse colon wall thickening as can be seen with infectious, inflammatory, or ischemic colitis. Discharge Plan Discharge Clinical Impression: Mesenteric panniculitis, Gastroenteritis Patient Disposition: Home Condition: Stable Instructions: Antibiotic Form, Gastroenteritis (ED), Acute Nausea and Vomiting (ED), Acute Diarrhea (ED) Additional Instructions: You have some inflammation in your GI tract consistent with mesenteric panniculitis or gastroenteritis. We will treat this with a combination antibiotic in addition to Zofran for nausea and Bentyl for abdominal bloating. Take medications as prescribed. Follow-up with regular doctor and we have also provided you a GI referral. Return with any worsening concerns or complaints. Patient Language: [place] Prescriptions: New dicyclomine 20 mg tablet 20 mg PO TID PRN (Reason: abdominal pain) Qty: 14 0RF ondansetron 4 mg tablet,disintegrating 4 mg PO Q8H PRN (Reason: nausea and vomiting) Qty: 20 0RF amoxicillin-pot clavulanate 875-125 mg tablet 1 tablet PO Q12H 7 Days Qty: 14 0RF No Action Viibryd 10 mg tablet 10 mg PO DAILY Narcan 4 mg/actuation spray,non-aerosol 4 mg NASAL Q2M Qty: 2 0RF Rx Instructions: spray 1 dose into ONE nostril; alternate nostrils w each dose until help arrives metoprolol succinate 50 mg tablet extended release 24 hr 100 mg PO DAILY clonazepam 0.5 mg tablet 0.5 mg PO DAILY PRN turmeric 400 mg capsule 1,400 mg PO BID All Day Allergy (cetirizine) 10 mg capsule 10 mg PO DAILY PRN echinacea 380 mg capsule 380 mg PO DAILY Rx Instructions: administer with meals trazodone 50 mg tablet 50 mg PO QHS PRN vitamin E (dl, acetate) 400 unit capsule 45 mg PO DAILY ferrous fumarate 325 mg (106 mg iron) tablet 325 mg PO DAILY Qty: 90 0RF lisinopril 5 mg tablet 5 mg PO .QD Qty: 30 0RF ferrous sulfate 325 mg (65 mg iron) tablet,delayed release (DR/EC) 325 mg PO DAILY Qty: 90 0RF cyclobenzaprine 10 mg tablet 10 mg PO TID Qty: 270 3RF omeprazole 40 mg capsule,delayed release(DR/EC) See Rx Instructions .ROUTE .COMPLEX Qty: 90 1RF Dose Instruction: TAKE 1 CAPSULE BY MOUTH EVERY DAY Rx Instructions: TAKE 1 CAPSULE BY MOUTH EVERY DAY montelukast 10 mg tablet See Rx Instructions .ROUTE .COMPLEX Qty: 90 1RF Dose Instruction: TAKE 1 TABLET BY MOUTH EVERY DAY Rx Instructions: TAKE 1 TABLET BY MOUTH EVERY DAY albuterol sulfate 2.5 mg /3 mL (0.083 %) solution for nebulization 2.5 mg inhalation Q4-6H PRN (Reason: shortness of breath or wheezing) Qty: 90 0RF Wegovy 0.5 mg/0.5 mL pen injector 0.5 mg subcut WEEKLY Qty: 2 3RF celecoxib 50 mg capsule See Rx Instructions .ROUTE .COMPLEX Qty: 60 2RF Dose Instruction: TAKE 1 CAPSULE BY MOUTH TWICE A DAY Rx Instructions: TAKE 1 CAPSULE BY MOUTH TWICE A DAY fluticasone propion-salmeterol 250-50 mcg/dose blister with device See Rx Instructions .ROUTE .COMPLEX Qty: 60 1RF Dose Instruction: INHALE 1 DOSE BY MOUTH TWICE DAILY Rx Instructions: INHALE 1 DOSE BY MOUTH TWICE DAILY hydrocodone-acetaminophen 7.5-325 mg tablet 1 tablet PO Q6H PRN (Reason: pain) Qty: 120 0RF Rx Instructions: follow up every 3mo albuterol sulfate 90 mcg/actuation HFA aerosol inhaler See Rx Instructions .ROUTE .COMPLEX Qty: 20.1 1RF Dose Instruction: INHALE 2 PUFFS BY MOUTH EVERY 4 HOURS NEEDED FOR SHORTNESS OF BREATH OR WHEEZING. Rx Instructions: INHALE 2 PUFFS BY MOUTH EVERY 4 HOURS NEEDED FOR SHORTNESS OF BREATH OR WHEEZING. Follow-up/Referrals: Jayden Mulligan MD [Physician] - 1 Week (Mesenteric panniculitis) Roberto Tran MD [Primary Care Provider] - Time of Disposition: 18:48
[2025-06-25 15:35] LABS: Alanine Aminotransferase 36 U/L (6-50); Albumin Level 4.2 g/dL (3.5-5.1); Alkaline Phosphatase 88 U/L (38-126); Anion Gap 9 mmol/L (4-12); Aspartate Amino Transferase 34 U/L (17-59); Bilirubin,Total 0.3 mg/dL (0.2-1.3); Blood Urea Nitrogen 14 mg/dL (9-20); Calcium 8.8 mg/dL (8.4-10.2); Carbon Dioxide 25 mmol/L (22-30); Chloride 104 mmol/L (98-107); Estimated CRCL calculation 77 ml/min; Estimated Glomerular Filt Rate > 60; Glucose 103 mg/dL (65-110); Lipase 81 U/L (23-300); Potassium 4.1 mmol/L (3.4-5.0); Sodium 138 mmol/L (137-145); Total Protein 7.2 g/dL (6.3-8.2)
--- NOTE | 2025-06-25 15:43 | PC.NURSE ---
pt to CT at this time
[2025-06-25] MEDS: LACTATED RINGERS 1,000 ML 999 ML IV CONT (15:59)
[2025-06-25] MEDS: DICYCLOMINE HCL 10 MG CAPSULE 20 MG PO (16:00)
[2025-06-25] MEDS: ONDANSETRON INJ 4 MG/2 ML VIAL IV PUSH (16:00)
[2025-06-25 16:15] LABS: Creatine Kinase 53 U/L (55-170)
--- OUTSIDE RECORDS SUMMARY | 2025-06-25 17:11 | XMS_ITS | Encounter Summary ---
Author Organization [facility] Address [address] [place] [address] Care Team Providers Care Director Of Catering Sales Name Role Phone Roberto Tran MD Primary Care Provider [phone] Encounter Details Date Type Department Care Team (Late st Contact Info) Description 10/09/2021 Prep for Procedure [facility] Pre-Admission Testing [facility] [place], [place] [id number] Lino Marks MD [address] [facility] [address] [place] [address] Social History Tobacco Use Types Packs/Day Years Used Date Smoking Tobacco: Former Cigarettes 2 30 Smokeless Tobacco: Never Comments:quit cigs 5 years, now vapes with nicotine Alcohol Use Standard Drinks/Week Comments Not Currently 0 (1 standard drink = 0.6 oz pur e alcohol) Sex and Gender Information Value Date Recorded Sex Assigned at Not on file Legal Sex Male 9:51 PM BOAT CANVAS MAKER INSTALLER Gender Identity Not on file Sexual Orientation Not on file COVID-19 Exposure Response Date Recorded In the last month, have you been in contact with someone who was confirmed or suspected to have Coronavirus / COVID-19? No / Unsure 10/09/2021 10:16 AM BOAT CANVAS MAKER INSTALLER documented as of this encounter Functional Status * Calculated C-SSRS Risk Score (Lifetime/Recent) Answer Date of Assessment Author Status No Risk Indicated 10/09/2021 10:56 AM BOAT CANVAS MAKER INSTALLER Sonia Cortes RN Active * [place]ins Suicide Severity Rating Scale (Screener/Recent Self-Report) Question Answer Date of Assessment Author Status 1. Wish to be (Past 1 Month) No 10/09/2021 10:56 AM BOAT CANVAS MAKER INSTALLER Sonia Cortes RN Activ e 2. Non-Specific Active Suicidal Thoughts (Past 1 Month) No 10/09/2021 10:56 AM BOAT CANVAS MAKER INSTALLER Sonia Cortes RN Activ e 6. Suicidal Behavior (Lifetime) No 10/09/2021 10:56 AM BOAT CANVAS MAKER INSTALLER Sonia Cortes RN Activ e documented as of this encounter Plan of Treatment Not on file documented as of this encounter Results * CORONAVIRUS (COVID 19) (10/20/2021 9:15 AM BOAT CANVAS MAKER INSTALLER) SPEC DESCRIPTION NASAL 10/20/20 9:[address] [facility] CORONAVIRUS SARS COV 2 PCR (RESP) NEGATIVE NEGATIVE 10/20/2021 7:12 PM [facility] Comment: THE SARS-CoV-2 TEST HAS BEEN AUTHORIZED BY THE FDA UNDER AN EUA FOR USE BY AUTHORIZED LABORATORIES. PERFORMED BY NUCLEIC ACID AMPLIFICATION PCR FIRST TEST NO 10/20/2021 9:[address] [facility] EMPLOYED IN HEALTHCARE NO 10/20/2021 9:[address] [facility] SYMPTOMATIC DEFINED BY CDC NO 10/20/2021 9:[address] [facility] HOSPITALIZATION STATUS NO 10/20/2021 9:25 AM BOAT CANVAS MAKER INSTALLER [facility] PATIENT IN ICU NO 10/20/2021 9:25 AM BOAT CANVAS MAKER INSTALLER [facility] RESIDENT OF [facility] CARE NO 10/20/2021 9:25 AM BOAT CANVAS MAKER INSTALLER [facility] NASAL STRUCTURE / Unknown 10/20/2021 9:15 AM BOAT CANVAS MAKER INSTALLER us Lino Marks MD MICROBIOLOGY - GENERAL ORDER [place] Final Result [facility] [address] [place] [address], [facility] [address] [place] [address], documented in this encounter Visit Diagnoses Diagnosis Pre-op exam- Primary Preoperative examination, unspecified documented in this encounter Additional Health Concerns Infection Onset Date Last Indicated Resolved Time COVID-19 Rule Out 10/20/2021 10/20/2021 10/20/2021 7:13 PM BOAT CANVAS MAKER INSTALLER documented as of this encounter Care Teams Director Of Catering Sales Relationship Specialty Start Date End Date Roberto Tran MD [address] [address] PCP - General FAMILY PRACTICE 10/09/21 documented as of this encounter
--- OUTSIDE RECORDS SUMMARY | 2025-06-25 17:11 | XMS_ITS | Clinical Summary ---
Author Organization [facility] Address [address] [place] [id number] Care Team Providers Care Artificial Flowers Starcher Name Role Phone Roberto Tran MD Primary Care Provider [phone] Allergies Active Allergy Reactions Criticality Noted Date [...] (11/13/2022): Added automatically from request for surgery [id number] Occlusion of gallbladder 04/10/2017 Overview (04/19/2017): Gall bladder occluded Hypertension Overview (10/03/2023): On benazepril 10 b.i.d., Cardizem CD 240 mg daily and Toprol XL to 100 daily. Normal LVEF on echo 07 August 2021. Normal LVEF on echo 11 January 2023. Assessment & Plan (01/23/2022 8:30 AM LUGGAGE ATTENDANT): Discussed that today's blood pressure is quite [...] 2023. Assessment & Plan (01/23/2022 8:32 AM LUGGAGE ATTENDANT): He will try to get records from [...] PM CDT): Apparently saw Dr. Lazcano in [facility] for atrial fibrillation. No echocardiogram was ever [...] Description 05/26/2025 10:15 AM CDT Office Visit [facility] Orthopedics and Sports Medicine [address] [facility] [address] [place] [phone] Jacqui Scott PA Rotator cuff insufficiency of left shoulder (Primary Dx); Primary osteoarthritis of left shoulder 05/07/2025 10:15 AM CDT Office Visit [facility] at [address] [place] [address] Jannette Almanzar NP Paroxysmal atrial fibrillation (HCC) (Primary Dx); Hypertension, unspecified type; Diastolic dysfunction 04/28/2025 Telephone [facility] at [address] [place] [address] Nicole Gil MA from Last [...] than three times a week 01/07/2023 Attends [employer] Not on file 01/07 Active Member [...] place to sleep or slept in a residential (including now)? No 01/07/2023 Personal Safety Answer Date Recorded Have you ever been in or are you currently in a harmful physical or emotional relationship or is someone making you feel afraid or unsafe? Denies 08/24/2024 Sex and Gender Information Value Date Recorded Sex Assigned at Not on file Legal Sex Male 11:49 PM LUGGAGE ATTENDANT Gender Identity Not on file Sexual Orientation [...] 01/08/2023, 01/06/2023 Medical Devices Implanted Type Area Vegetable Specker Device Identifier Shelf Expiration Date Model / Serial / Lot [place] [employer] Ams 700 Kit Accessory Penile Prosthesis [id number] - [id number] Implanted:Qty: 1 on 08/24/2024 by James Small MD at [facility] N/A: Penis [employer] [place] [employer] [id number] 07/06/2029 [id number] / / [id number] [employer] [place] [employer] Ams 700 Lgx Ms Pump 18cm 3 Piece Inflatable Preconnect Infrapubic [id number] - [id number] Implanted:Qty: 1 on 08/24/2024 by James Small MD at [facility] N/A: Penis [employer] [place] [employer] [id number] 05/18/2026 [id number] / / [id number] [employer] [place] [employer] Ams 700 Ms Pump Preconnect Inflatable [place] Prosthesis 65ml [id number] - [id number] Implanted:Qty: 1 on 08/24/2024 by James Small MD at [facility] N/A: Penis [place] [employer] Mile [id number] 04/21/2026 [id number] / / [id number] Procedures Procedure Name Priority Date/Time Associated Diagnosis Comments MD ARTHROCENTESIS ASPIR&/INJ MAJOR JT/BURSA W/O US Routine 05/26/2025 10:15 AM CDT 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 CT ABDOMEN PELVIS WO CONTRAST IP Routine 01/08/2023 1:52 PM LUGGAGE ATTENDANT PSA DIAGNOSTIC Routine 11/14/2022 11:55 AM LUGGAGE ATTENDANT Elevated PSA from Last 3 Months or Most Recently Relevant to Health Maintenance Results * MD ARTHROCENTESIS ASPIR&/INJ MAJOR JT/BURSA W/O US (05/26/2025 [...] Abdomen Pelvis WO Contrast (01/08/2023 1:52 PM LUGGAGE ATTENDANT) Anatomical Region Laterality Modality Body N/A Computed Tomogra phy 01/08/2023 3:03 PM LUGGAGE ATTENDANT Impressions 01/08/2023 3:03 PM LUGGAGE ATTENDANT 1. DEPENDENT ATELECTASIS IN THE LUNG BASES [...] Sin Contreras M.D. Narrative 01/08/2023 3:03 PM LUGGAGE ATTENDANT EXAMINATION: CT ABDOMEN PELVIS WO CONTRAST DATE: [...] t * PSA diagnostic (11/14/2022 11:55 AM LUGGAGE ATTENDANT) PSA-Total 0.88 <=5.40 ng/mL JAROD VALLEJO Comment: [...] revised 22. Blood 11/14/2022 11:5 5 AM LUGGAGE ATTENDANT 11/14/2022 11:55 AM LUGGAGE ATTENDANT James Small MD LAB BLOOD ORDERABLES nal Result JAROD [address] [place] [address] from Last 3 Months or Most Recently Relevant to Health Maintenance [place] [address] COMMERCIAL GENERIC MEDICARE [place] [id number] H & W MCR SUPPLEMENT Advance Directives For more information, please contact: [phone] * Full Code (Latest Code Status on File) Date Activated Date Inactivated Comments 08/24/2024 12:18 PM 08/25/2024 2:53 PM * Full Code Date Activated Date Inactivated Comments 01/05/2023 8:07 AM 01/14/2023 7:38 PM * Full Code Date Activated Date Inactivated Comments 12/06/2022 11:29 AM 12/07/2022 7:16 PM Care Teams Artificial Flowers Starcher Relationship Specialty Start Date End Date Roberto Tran MD PCP - General Family Medicine 05/20/23
--- OUTSIDE RECORDS SUMMARY | 2025-06-25 17:11 | XMS_ITS | Clinical Summary ---
Author Organization [facility] Address [address] [place] [address] Care Team Providers Care Ceramic Research Engineer Name Role Phone Roberto Tran MD Primary Care Provider [phone] Allergies Active Allergy Reactions Criticality Noted Date [...] History Relation Comments Cancer Father Hypertension Father [place] Father Hypertension Mother Relation Status Comments Brother [...] on file Legal Sex Male 9:51 PM SPORTING GOODS SALES MANAGER Gender Identity Not on file Sexual Orientation Not on file Last Filed Vital Signs Vital Sign Reading Time Taken Comments Blood Pressure 183/106 11/14/2021 12:47 PM SPORTING GOODS SALES MANAGER Pulse 80 11/14/2021 12:47 PM SPORTING GOODS SALES MANAGER Temperature 36.6 C (97.9 F) 11/14/2021 12:47 PM SPORTING GOODS SALES MANAGER Respiratory Rate 18 11/14/2021 12:4 7 PM SPORTING GOODS SALES MANAGER Oxygen Saturation 99% 11/14/2021 12: 47 PM SPORTING GOODS SALES MANAGER Inhaled Oxygen Concentration - - Weight 95.7 kg (210 lb 15.7 oz) 021 12:47 PM SPORTING GOODS SALES MANAGER Height 175.3 cm (5' 9) 11/14/2021 12:4 7 PM SPORTING GOODS SALES MANAGER Body Mass Index 31.16 11/14/2021 12:47 PM SPORTING GOODS SALES MANAGER Plan of Treatment Health Maintenance Due Date [...] Gustafson RN Medical Devices Implanted Type Area Minibus Driver Device Identifier Shelf Expiration Date Model / Serial / Lot Sst Tl Set Screw Implanted:Qty: 4 on 10/23/2021 by Lino Marks MD at [facility] N/A: Spine Lumbar NEW AGE MEDICAL OR-SETSCRE W / / Sst-Tl 6.5x50 Screw Implanted:Qty: 4 on 10/23/2021 by Lino Marks MD at [facility] N/A: Spine Lumbar NEW AGE MEDICAL PA-65-5 0 / / F3d Straight Implanted:Qty: 2 on 10/23/2021 by Lino Marks MD at [facility] N/A: Spine Lumbar NEW AGE MEDICAL [id number] 11/09/2025 [id number] / / [id number] Sst 50 Billy Implanted:Qty: 2 on 10/23/2021 by Lino Marks MD at [facility] N/A: Spine Lumbar NEW AGE MEDICAL 55-NH-5 0 / / Explanted Type Area Minibus Driver Device Identifier Shelf Expiration Date Model / Serial / Lot Bur Drill Neuro Benita 3.0mm X 3.8mm - [id number] Explanted:Qty: 1 on 10/23/2021 at [facility] Drill N/A: Spine Lumbar [employer] - DIV BENITA VERONICA [id number] 30 / / [facility] Advance Directives * Full Code (Latest Code Status on File) Date Activated Date Inactivated Comments 10/23/2021 4:20 PM 10/24/2021 4:29 PM Care Teams Ceramic Research Engineer Relationship Specialty Start Date End Date Roberto Tran MD [address] [place] [address] PCP - General FAMILY PRACTICE 10/09/21
--- OUTSIDE RECORDS SUMMARY | 2025-06-25 17:11 | XMS_ITS | Referral Summary ---
Author Organization [facility] Address [address] [place] [address] Care Team Providers Care Merchandise Worker Name Role Phone Roberto Tran MD Primary Care Provider Encounters Date Type Department Care Team Description 05/26/2025 10:15 AM CDT Office Visit [facility] Group Orthopedics and Sports Medicine [address] [facility] [address] [place] [phone] Jacqui Scott PA Rotator cuff insufficiency of left shoulder (Primary Dx); Primary osteoarthritis of left shoulder 05/07/2025 10:15 AM CDT Office Visit [facility] at [address] [place] [phone] Jannette Almanzar NP Paroxysmal atrial fibrillation (HCC) (Primary Dx); Hypertension, unspecified type; Diastolic dysfunction 04/28/2025 Telephone [facility] at [address] [place] [phone] Nicole Gil MA from Last 3 Months [...] (11/13/2022): Added automatically from request for surgery [id number] Occlusion of gallbladder 04/10/2017 Overview (04/19/2017): Gall bladder occluded Hypertension Overview (10/03/2023): On benazepril 10 b.i.d., Cardizem CD 240 mg daily and Toprol XL to 100 daily. Normal LVEF on echo 07 August 2021. Normal LVEF on echo 11 January 2023. Assessment & Plan (01/23/2022 8:30 AM EXPELLER OPERATOR): Discussed that today's blood pressure is quite [...] 2023. Assessment & Plan (01/23/2022 8:32 AM EXPELLER OPERATOR): He will try to get records from [...] PM CDT): [facility]. No echocardiogram was [...] than three times a week 01/07/2023 Attends [employer] [facility] Not on file 01/07 Active Member [...] place to sleep or slept in a correction (including now)? No 01/07/2023 Personal Safety Answer Date Recorded Have you ever been in or are you currently in a harmful physical or emotional relationship or is someone making you feel afraid or unsafe? Denies 08/24/2024 Sex and Gender Information Value Date Recorded Sex Assigned at Not on file Legal Sex Male 11:49 PM EXPELLER OPERATOR Gender Identity Not on file Sexual Orientation [...] on file Medical Devices Implanted Type Area Mold Checker Device Identifier Shelf Expiration Date Model / Serial / Lot [employer] Mile Ams 700 Kit Accessory Penile Prosthesis [id number] - [id number] Implanted:Qty: 1 on 08/24/2024 by James Small MD at [facility] N/A: Penis [employer] Mile [id number] 07/06/2029 [id number] / / [id number] [employer] Mile Ams 700 Lgx Ms Pump 18cm 3 Piece Inflatable Preconnect Infrapubic [id number] - [id number] Implanted:Qty: 1 on 08/24/2024 by James Small MD at [facility] N/A: Penis [employer] Mile [id number] 05/18/2026 [id number] / / [id number] [employer] Mile Ams 700 Ms Pump Preconnect Inflatable [place] Prosthesis 65ml [id number] - [id number] Implanted:Qty: 1 on 08/24/2024 by James Small MD at [facility] N/A: Penis [employer] Mile [id number] 04/21/2026 [id number] / / [id number] Procedures Procedure Name Priority Date/Time Associated Diagnosis Comments [place] ARTHROCENTESIS ASPIR&/INJ MAJOR JT/BURSA W/O US Routine 05/26/2025 10:15 AM CDT 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 CT ABDOMEN PELVIS WO CONTRAST IP Routine 01/08/2023 1:52 PM EXPELLER OPERATOR PSA DIAGNOSTIC Routine 11/14/2022 11:55 AM EXPELLER OPERATOR Elevated PSA from Last 3 Months or Most Recently Relevant to Health Maintenance Results * NV ARTHROCENTESIS ASPIR&/INJ MAJOR JT/BURSA W/O US (05/26/2025 [...] Abdomen Pelvis WO Contrast (01/08/2023 1:52 PM EXPELLER OPERATOR) Anatomical Region Laterality Modality Body N/A Computed Tomogra phy 01/08/2023 3:03 PM EXPELLER OPERATOR Impressions 01/08/2023 3:03 PM EXPELLER OPERATOR 1. DEPENDENT ATELECTASIS IN THE LUNG BASES [...] Sin Contreras M.D. Narrative 01/08/2023 3:03 PM EXPELLER OPERATOR EXAMINATION: CT ABDOMEN PELVIS WO CONTRAST DATE: [...] t * PSA diagnostic (11/14/2022 11:55 AM EXPELLER OPERATOR) PSA-Total 0.88 <=5.40 ng/mL JAROD VALLEJO Comment: [...] revised 22. Blood 11/14/2022 11:5 5 AM EXPELLER OPERATOR 11/14/2022 11:55 AM EXPELLER OPERATOR James Small MD LAB BLOOD ORDERABLES [facility] Result JAROD VALLEJO [address] Department [place] [address] from Last 3 Months or Most Recently Relevant to Health Maintenance Insurance MEDICARE COMMERCIAL GENERIC MEDICARE LOCAL [facility] H & W MCR SUPPLEMENT Advance Directives For more information, please contact: [phone] * Full Code (Latest Code Status on File) Date Activated Date Inactivated Comments 08/24/2024 12:18 PM 08/25/2024 2:53 PM * Full Code Date Activated Date Inactivated Comments 01/05/2023 8:07 AM 01/14/2023 7:38 PM * Full Code Date Activated Date Inactivated Comments 12/06/2022 11:29 AM 12/07/2022 7:16 PM Care Teams Merchandise Worker Relationship Specialty Start Date End Date Roberto Tran MD PCP - General Family Medicine 05/20/23
--- OUTSIDE RECORDS SUMMARY | 2025-06-25 17:11 | XMS_ITS | Continuity of Care Document ---
Author Organization [facility] Address [address] [place] [address] [place] [address] Phone Care Team Providers Care Customer Expert Name Role Phone Calos Silva MD Unavailable Unavailable Advance Directives Directive Yes / No Effective Date File Name No Information Encounters Encounter Description Practice Location Reason(s) For Visit Diagnoses Date Provider Providers Copied on Encounter [facility], [address], [place], [place], [id number], [place] tel:[phone] SEC Rey TALLEY Professional No Information 0-200 5 Shira Live. [address] [facility] [address], [place], [place], [id number], [place]. tel:[phone] Family History Family Member Type Diagnosis Age At Onset No Information Payers Payer name Insurance type Covered democrat ID Authoriza tion(s) [employer] SOI CI [id number] Social History Type Description Quantity Date Captured [...]
== END 2025-06-25 19:07 | disposition home or self-care (01) ==
PROVIDERS: Emergency Provider Student in an Organized Health Care Education/Training Program; PCP Family Medicine
DX: K65.4 Sclerosing mesenteritis (principal); K52.9 Noninfective gastroenteritis and colitis, unspecified; E78.2 Mixed hyperlipidemia; M16.11 Unilateral primary osteoarthritis, right hip; M17.11 Unilateral primary osteoarthritis, right knee; Z87.891 Personal history of nicotine dependence; Z90.79 Acquired absence of other genital organ(s); Z90.49 Acquired absence of other specified parts of digestive tract; Z79.899 Other long term (current) drug therapy
CPT/HCPCS: 36415; 74176; 80053; 81003; 82550; 83690; 85025; 96361; 96374; 99284; A9270; J2405; J7120

== ENCOUNTER 2025-09-15 13:08 | Emergency (ER) | payer MEDICARE, OTHER, SELFPAY ==
--- OUTSIDE RECORDS SUMMARY | 2004-12-04 09:30 | XMS_ITS | Continuity of Care Document ---
Author Organization [facility] Address [address] [place] [address] [place] [address] Phone Care Team Providers Care Electrical Fitter Name Role Phone Calos Silva MD Unavailable Unavailable Advance Directives Directive Yes / No Effective Date File Name No Information Encounters Encounter Description Practice Location Reason(s) For Visit Diagnoses Date Provider Providers Copied on Encounter [facility], [address], [place], [place], [id number], [place] tel:[phone] [address] Rey TALLEY Professional No Information 0-200 5 Shira Live. [address] [facility], [facility], [place], [place], [id number], [place]. tel:[phone] Family History Family Member Type Diagnosis Age At Onset No Information Payers Payer name Insurance type Covered constitution party ID Authoriza tion(s) [employer] SOI CI [id number] Social History Type Description Quantity Date Captured Comments Sex Male Smoking Status No Information Chief Complaint And Reason For Visit No Information Reason For Referral Reason For Referral No Information History Of Present Illness Encounter Date Complaint History Of Prese nt Illness No Information Functional Status Date Functional Assessmen t No Information Instructions Date Instruction Additional Infor mation No Information Assessments Type Assessment Date No Information Patient Care Teams Name Effective Dates (start - stop) Status Members No Information
--- NOTE | ~2025-09-15 | XR_ITS ---
EXAMINATION: XR forearm LT 2V DATE: 09/15/2025 15:07 INDICATION: Left forearm injury post fall TECHNIQUE: AP an lateral views of the left forearm were obtained. COMPARISON: none FINDINGS: Alignment is normal. No fracture. Mild polyarticular osteoarthritis at the left elbow and multiple joints at the left wrist and carpus.. Soft tissues are unremarkable. No left elbow joint effusion. IMPRESSION: 1. No acute osseous abnormality. Reviewed, dictated and finalized at location A.
--- NOTE | ~2025-09-15 | CT_ITS ---
CT chest abdomen pelvis wo con HISTORY: hip pain, back pain, fall . COMPARISON: None. TECHNIQUE: Axial images of the chest, abdomen and pelvis were obtained without and with infusion of intravenous contrast which limits diagnostic sensitivity. FINDINGS: CT CHEST: The examination demonstrates no pulmonary nodules, infiltrates and/or effusions. No pathologically enlarged hilar or mediastinal lymphadenopathy is seen. Cardiac size and mediastinal configuration are normal in appearance. Coronary artery calcifications are noted. The pulmonary artery and thoracic aorta are normal in caliber and patency. Osseous structures are intact. The visualized organs of the upper abdomen are unremarkable. IMPRESSION: No acute cardiopulmonary process. CT abdomen and pelvis with contrast: The liver parenchyma is unremarkable. No intrahepatic mass or ductal dilatation is evident. The patient has had a cholecystectomy. The pancreas and spleen are normal in appearance. The adrenal glands are symmetric in size. The kidneys demonstrate symmetric uptake and excretion of contrast. No cystic mass is evident. There is no solid mass. There is no hydronephrosis. Evaluation of the stomach and bowel loops are limited due to lack of oral contrast. Moderate fecal load suggestive of constipation. The bladder and rectum are normal. No free intraperitoneal fluid or air is evident. There is no significant retroperitoneal lymphadenopathy. The aorta, visceral vessels and renal arteries demonstrate normal caliber and patency. The lower thoracic and lumbar vertebrae are in normal alignment. IMPRESSION: No acute abnormality is noted in the abdomen and pelvis. All CT scans at this facility are performed using low dose modulation techniques as appropriate to perform exam including the following: automated exposure control; use of iterative reconstruction technique; adjustment of the mA and/or kV according to patient size (this includes techniques or standardized protocols for targeted exams where dose is matched to indication/reason for exam) Reviewed, dictated and finalized at location S. IMPRESSION: No acute cardiopulmonary process. CT abdomen and pelvis with contrast: The liver parenchyma is unremarkable. No intrahepatic mass or ductal dilatation is evident. The patient has had a cholecystectomy. The pancreas and spleen are normal in appearance. The adrenal glands are symmetric in size. The kidneys demonstrate symmetric uptake and excretion of contrast. No cystic m ass is evident. There is no solid mass. There is no hydronephrosis. Evaluation of the stomach and bowel loops are limited due to lack of oral contr ast. Moderate fecal load suggestive of constipation. The bladder and rectum are normal. No free intraperitoneal fluid or air is evid ent. There is no significant retroperitoneal lymphadenopathy. The aorta, visceral vessels and renal arteries demonstrate normal caliber and p atency. The lower thoracic and lumbar vertebrae are in normal alignment. IMPRESSION: No acute abnormality is noted in the abdomen and pelvis. All CT scans at this facility are performed using low dose modulation techniqu es as appropriate to perform exam including the following: automated exposure c ontrol; use of iterative reconstruction technique; adjustment of the mA and/or kV according to patient size (this includes techniques or standardized protocol s for targeted exams where dose is matched to indication/reason for exam)
--- NOTE | ~2025-09-15 | CT_ITS ---
EXAMINATION: CT cervical spine wo con DATE: 09/15/2025 14:50 INDICATION: Neck pain after fall from height. TECHNIQUE: Computed tomography (CT) of the cervical spine was performed without intravenous contrast. The dose-length product was 482 mGy-cm. Automated exposure control and iterative reconstruction technique were employed. COMPARISON: None FINDINGS: Craniovertebral junction is normal. Odontoid process is normal. There is advanced multilevel degenerative disc disease and endplate hypertrophy at C3- 4 through C7-T1. There is degenerative anterolisthesis at C7-T1. There is multilevel uncinate and facet hypertrophy. There is mild emphysema. There is carotid atherosclerosis. No paraspinal soft tissue abnormality. No evidence for perched facet. Spinous processes are unremarkable. There is ossification of the nuchal ligament. IMPRESSION: 1. No acute abnormality of the cervical spine. 2: Severe cervical spondylosis. Reviewed, dictated and finalized at location O.
--- NOTE | ~2025-09-15 | CT_ITS ---
EXAMINATION: CT brain wo aidan, 09/15/2025 14:40 CDT HISTORY: fall from ladder COMPARISON: No comparisons available. Technique: Axial images obtained of the brain without contrast. One or more of the following dose reduction techniques were used: automated exposure control, adjustment of the mA and/or kV according to patient size, use of iterative reconstruction technique. Findings: No acute infarct or parenchymal hemorrhage. No abnormal mass or mass effect. No midline shift. No extra-axial fluid collections. No hydrocephalus. Mastoid air cells unremarkable. Sinuses and orbits unremarkable. No acute fracture. No significant facial or scalp soft tissue swelling evident. No radiopaque foreign body is seen. Impression: 1.No acute intracranial abnormality. Reviewed, dictated and finalized at location P. Impression: 1.No acute intracranial abnormality.
--- NOTE | ~2025-09-15 | XR_ITS ---
XR hip RT 2V w AP pelvis Indication: right hip pain, fall Comparison: None FINDINGS: Single views of the pelvis and 2 views of the right hip were obtained. No acute fracture or dislocation is seen. . The sacroiliac joints and symphysis pubis are intact. IMPRESSION: No acute fractures or dislocations. Reviewed, dictated and finalized at location S.
[2025-09-15 13:11] VITALS: BP 144/68; PULSE 84; RESP 16; TEMP 36.6; O2SAT 97
--- NOTE | 2025-09-15 14:25 | ED.FALL ---
HPI - Fall General Chief Complaint: Fall Stated Complaint: fell from ladder 6ft Time Seen by Provider: 09/15/25 14:25 Focused HPI: This is a 70 year old male that presents to the ER after a fall today. Reports he fell off of a ladder, he believes he was about 6 feet up. Landed on his right side/back. He does not believe he hit his head. He did not lose consciousness. Reports back pain, right hip pain. Reports left forearm pain. Denies chest pain, abdominal pain, vomiting, numbness, weakness. He does not take anticoagulation. GENERAL: Well-appearing, well-nourished, and in no acute distress. HEAD: Normocephalic, atraumatic. CHEST: Clear to auscultation. ?No respiratory distress. HEART: Regular rate and rhythm.? NEURO: ?Alert and oriented x3. Patient screened in triage and initial orders placed.? ?Additional care and disposition to be based upon?diagnostic testing and treatment. Related Data Home Medications ?Medication ?Instructions ?Recorded ?Confirmed ?Last Taken ?Type vilazodone 10 mg tablet (Viibryd) 10 mg PO DAILY 10/13/19 09/13/25 Unknown History cetirizine 10 mg capsule (All Day 10 mg PO DAILY PRN allergy symptoms 04/05/21 09/13/25 Unknown History Allergy (cetirizine)) echinacea 380 mg capsule 380 mg PO DAILY 04/05/21 09/13/25 Unknown History trazodone 50 mg tablet 50 mg PO QHS PRN insomnia 04/05/21 09/13/25 Unknown History vitamin E (dl, acetate) 180 mg 45 mg PO DAILY 04/05/21 09/13/25 Unknown History (400 unit) capsule metoprolol succinate 50 mg 50 mg PO DAILY 02/22/22 09/13/25 Unknown History tablet,extended release 24 hr clonazepam 0.5 mg tablet 0.5 mg PO DAILY PRN anxiety 06/26/22 09/13/25 Unknown History turmeric 400 mg capsule 1,400 mg PO BID 01/30/24 09/13/25 Unknown History fish,flax,primrose,borag 1 cap PO DAILY 09/13/25 09/13/25 Unknown History oils-om3,6,9 no5 400 mg-400 mg-200 mg capsule Allergies Allergy/AdvReac Type Severity Reaction Status Date / Time venom-honey bee Allergy Severe CARRIES Verified 09/13/25 11:46 EPI PEN levofloxacin Allergy Mild Unknown Verified 09/13/25 11:46 iodine Allergy Unknown Unknown Verified 09/13/25 11:46 Review of Systems Review of Systems: All systems reviewed & are unremarkable except as noted in HPI and below PMFSH Past Medical History Medical History GERD (gastroesophageal reflux disease) Abnormal CT scan Hospital discharge follow-up Diarrhea Pain, abdominal Hand abrasion, non-infected RUQ abdominal pain Sinusitis Weight gain Elevated glucose Elevated glucose Mixed hyperlipidemia Perla catheter in place Erectile dysfunction BMI 34.0-34.9,adult Osteoarthritis of right knee Osteoarthritis of right hip BMI greater than 30 BMI 32.0-32.9,adult BMI 31.0-31.9,adult BMI 29.0-29.9,adult Tobacco abuse BMI 28.0-28.9,adult BPH associated with nocturia Chronic left shoulder pain Chronic radicular lumbar pain High potassium Swelling Therapeutic opioid induced constipation Surgical History Surgical History History of prostatectomy H/O Spinal surgery Family History Family History Father Hypertension Family history of malignant neoplasm Mother Hypertension Family history of coronary artery disease Sibling No problems noted. Social History Social History Smoking status: Current every day smoker Tobacco type: cigarettes Second hand tobacco smoke exposure: Yes Smoking end date: 06/28/24 Additional smoking assessment comments: 27 years Alcohol intake: never Substance use: never Substance use type: does not use Do You Feel Safe in your Home?: Yes Lack of Transportation: No Lack of Food: Never True Current Housing: I Have Housing Concerned About Future Housing: No Difficulty Paying Gas/Electric Bills: No Difficulty Paying for Meds: No Currently Unemployed: No Education: Trade/Vocational Certificate Difficulty w/ Childcare or Family Care: No Living arrangements: with family Occupation/Education: retired 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 HEAD: Normocephalic, atraumatic. EYES: PERRLA and EOMI. ENT: Nares clear, no rhinorrhea or epistaxis. Mucous membranes moist. Oropharynx without tonsillar hypertrophy exudate or other lesions. NECK: Supple. No adenopathy or masses. CHEST: Clear to auscultation. No respiratory distress. No wheezes rales or rhonchi HEART: Regular rate and rhythm. No murmur heard. Normal peripheral pulses. EXTREMITIES: Normal range of motion. No edema or obvious deformity. SKIN: Warm, dry, no rash. NEURO: No focal deficits. Alert and oriented x3. Normal gait PSYCH: Normal mood and affect Course Vital Signs Vital signs: Vital Signs Temperature 97.8 F 09/15/25 13:11 Pulse Rate 84 09/15/25 13:11 Respiratory Rate 16 09/15/25 13:11 Blood Pressure 144/68 H 09/15/25 13:11 Pulse Oximetry 97 09/15/25 13:11 Temperature 97.8 F 09/15/25 13:11 Pulse Rate 84 09/15/25 13:11 Respiratory Rate 16 09/15/25 13:11 Blood Pressure 144/68 H 09/15/25 13:11 Pulse Oximetry 97 09/15/25 13:11 MDM - Fall MDM Narrative Medical decision making narrative: Patient presents to the emergency department after a fall from ladder with back pain, pain. He is neurologically intact. CT brain, cervical spine without acute findings. CT chest/abdomen/pelvis without acute findings. Left forearm x-ray without acute osseous abnormalities. Patient updated on his workup and agrees with plan of care. Instructed to rest, ice and take [id number] pain medication as needed. He is to follow up with provider. He was given warnings to return the ER Differential Diagnosis Differential diagnosis: Likely compression fracture, concussion without loss of consciousness and other (Intra-abdominal trauma, intrathoracic trauma) Imaging Data Radiologist's impression: ITS Impressions Head CT 09/15/25 14:54 Impression: 1.No acute intracranial abnormality. Cervical Spine CT 09/15/25 15:00 IMPRESSION: 1. No acute abnormality of the cervical spine. 2: Severe cervical spondylosis. Forearm X-Ray 09/15/25 15:08 IMPRESSION: 1. No acute osseous abnormality. Chest/Abdomen/Pelvis CT 09/15/25 15:24 IMPRESSION: No acute cardiopulmonary process. CT abdomen and pelvis with contrast: The liver parenchyma is unremarkable. No intrahepatic mass or ductal dilatation is evident. The patient has had a cholecystectomy. The pancreas and spleen are normal in appearance. The adrenal glands are symmetric in size. The kidneys demonstrate symmetric uptake and excretion of contrast. No cystic mass is evident. There is no solid mass. There is no hydronephrosis. Evaluation of the stomach and bowel loops are limited due to lack of oral contrast. Moderate fecal load suggestive of constipation. The bladder and rectum are normal. No free intraperitoneal fluid or air is evident. There is no significant retroperitoneal lymphadenopathy. The aorta, visceral vessels and renal arteries demonstrate normal caliber and patency. The lower thoracic and lumbar vertebrae are in normal alignment. IMPRESSION: No acute abnormality is noted in the abdomen and pelvis. All CT scans at this facility are performed using low dose modulation techniques as appropriate to perform exam including the following: automated exposure control; use of iterative reconstruction technique; adjustment of the mA and/or kV according to patient size (this includes techniques or standardized protocols for targeted exams where dose is matched to indication/reason for exam) Hip/Pelvis X-Ray 09/15/25 16:04 IMPRESSION: No acute fractures or dislocations. Critical Care Time Critical Care Time Critical Care Time: No Discharge Plan Discharge Clinical Impression: Skin tear Fall from ladder Qualifiers: Encounter type: initial encounter Qualified Code(s): W11.XXXA - Fall on and from ladder, initial encounter Patient Disposition: Home Condition: Stable Instructions: Contusion in Adults (ED), Skin Tear (ED) Additional Instructions: Return to the emergency department if you experience fever, chest pain, shortness of breath, abdominal pain with nausea and vomiting, weakness, numbness, or any other symptoms that are concerning to you. Rest. Ice to the area. Over the counter pain medication as needed. Prescribed pain medication as needed Follow up with primary care doctor Patient Language: Trinidadian Prescriptions: No Action Viibryd 10 mg tablet 10 mg PO DAILY Narcan 4 mg/actuation spray,non-aerosol 4 mg NASAL Q2M Qty: 2 0RF Rx Instructions: spray 1 dose into ONE nostril; alternate nostrils w each dose until help arrives metoprolol succinate 50 mg tablet extended release 24 hr 50 mg PO DAILY clonazepam 0.5 mg tablet 0.5 mg PO DAILY PRN (Reason: anxiety) turmeric 400 mg capsule 1,400 mg PO BID All Day Allergy (cetirizine) 10 mg capsule 10 mg PO DAILY PRN (Reason: allergy symptoms) echinacea 380 mg capsule 380 mg PO DAILY Rx Instructions: administer with meals trazodone 50 mg tablet 50 mg PO QHS PRN (Reason: insomnia) vitamin E (dl, acetate) 400 unit capsule 45 mg PO DAILY nbqh-xsl-llr-blkbor-om 3,6,9 5 400-400-200 mg capsule 1 cap PO DAILY lisinopril 5 mg tablet 5 mg PO .QD Qty: 30 0RF ferrous sulfate 325 mg (65 mg iron) tablet,delayed release (DR/EC) 325 mg PO DAILY Qty: 90 0RF cyclobenzaprine 10 mg tablet 10 mg PO TID Qty: 270 3RF montelukast 10 mg tablet See Rx Instructions .ROUTE .COMPLEX Qty: 90 1RF Dose Instruction: TAKE 1 TABLET BY MOUTH EVERY DAY Rx Instructions: TAKE 1 TABLET BY MOUTH EVERY DAY albuterol sulfate 2.5 mg /3 mL (0.083 %) solution for nebulization 2.5 mg inhalation Q4-6H PRN (Reason: shortness of breath or wheezing) Qty: 90 0RF albuterol sulfate 90 mcg/actuation HFA aerosol inhaler See Rx Instructions .ROUTE .COMPLEX Qty: 20.1 1RF Dose Instruction: INHALE 2 PUFFS BY MOUTH EVERY 4 HOURS NEEDED FOR SHORTNESS OF BREATH OR WHEEZING. Rx Instructions: INHALE 2 PUFFS BY MOUTH EVERY 4 HOURS NEEDED FOR SHORTNESS OF BREATH OR WHEEZING. omeprazole 40 mg capsule,delayed release(DR/EC) See Rx Instructions .ROUTE .COMPLEX Qty: 90 1RF Dose Instruction: TAKE 1 CAPSULE BY MOUTH EVERY DAY Rx Instructions: TAKE 1 CAPSULE BY MOUTH EVERY DAY fluticasone propion-salmeterol 250-50 mcg/dose blister with device See Rx Instructions .ROUTE .COMPLEX Qty: 60 1RF Dose Instruction: INHALE 1 DOSE BY MOUTH TWICE DAILY Rx Instructions: INHALE 1 DOSE BY MOUTH TWICE DAILY celecoxib 50 mg capsule See Rx Instructions .ROUTE .COMPLEX Qty: 60 2RF Dose Instruction: TAKE 1 CAPSULE BY MOUTH TWICE A DAY Rx Instructions: TAKE 1 CAPSULE BY MOUTH TWICE A DAY varenicline tartrate [Chantix Starting Month Box] 0.5 mg (11)- 1 mg (42) tablets,dose pack See Rx Instructions PO PER PKG DIR Qty: 53 0RF Rx Instructions: PO PER PKG DIR hydrocodone-acetaminophen 7.5-325 mg tablet 1 tablet PO Q6H PRN (Reason: pain) Qty: 120 0RF Rx Instructions: follow up every 3mo Wegovy 0.5 mg/0.5 mL pen injector 0.5 mg subcut WEEKLY Qty: 2 3RF Follow-up/Referrals: Roberto Tran MD [Primary Care Provider, Family Practice]
[2025-09-15] MEDS: HYDROcodone/acetaminophen (*CRX) 5-325 MG TABLET 1 TAB PO (15:07)
--- OUTSIDE RECORDS SUMMARY | 2025-09-15 16:38 | XMS_ITS | Encounter Summary ---
Author Organization [facility] Address [address] [place] [id number] Care Team Providers Care Social Work Program Coordinator Name Role Phone Roberto Tran MD Primary Care Provider [phone] Encounter Details Date Type Department Care Team (Late st Contact Info) Description 10/09/2021 Prep for Procedure [place] Pre-Admission Testing [facility] [place], [place] [id number] Lino Marks MD 3 [facility] [address] [place] [address] Social History Tobacco Use Types Packs/Day Years Used Date Smoking Tobacco: Former Cigarettes 2 30 Smokeless Tobacco: Never Comments:quit cigs 5 years, now vapes with nicotine Alcohol Use Standard Drinks/Week Comments Not Currently 0 (1 standard drink = 0.6 oz pur e alcohol) Sex and Gender Information Value Date Recorded Sex Assigned at Not on file Legal Sex Male 9:51 PM PHYSICIAN PRACTICE MANAGER Gender Identity Not on file Sexual Orientation Not on file COVID-19 Exposure Response Date Recorded In the last month, have you been in contact with someone who was confirmed or suspected to have Coronavirus / COVID-19? No / Unsure 10/09/2021 10:16 AM PHYSICIAN PRACTICE MANAGER documented as of this encounter Functional Status * Calculated C-SSRS Risk Score (Lifetime/Recent) Answer Date of Assessment Author Status No Risk Indicated 10/09/2021 10:56 AM PHYSICIAN PRACTICE MANAGER Sonia Cortes RN Active * [place] Suicide Severity Rating Scale (Screener/Recent Self-Report) Question Answer Date of Assessment Author Status 1. Wish to be (Past 1 Month) No 10/09/2021 10:56 AM PHYSICIAN PRACTICE MANAGER Sonia Cortes RN Activ e 2. Non-Specific Active Suicidal Thoughts (Past 1 Month) No 10/09/2021 10:56 AM PHYSICIAN PRACTICE MANAGER Sonia Cortes RN Activ e 6. Suicidal Behavior (Lifetime) No 10/09/2021 10:56 AM PHYSICIAN PRACTICE MANAGER Sonia Cortes RN Activ e documented as of this encounter Plan of Treatment Not on file documented as of this encounter Results * CORONAVIRUS (COVID 19) (10/20/2021 9:15 AM PHYSICIAN PRACTICE MANAGER) SPEC DESCRIPTION NASAL 10/20/20 9:25 AM [facility] CORONAVIRUS SARS COV 2 PCR (RESP) NEGATIVE NEGATIVE 10/20/2021 7:12 PM [facility] Comment: THE SARS-CoV-2 TEST HAS BEEN AUTHORIZED BY THE FDA UNDER AN EUA FOR USE BY AUTHORIZED LABORATORIES. PERFORMED BY NUCLEIC ACID AMPLIFICATION PCR FIRST TEST NO 10/20/2021 9:25 AM [facility] EMPLOYED IN HEALTHCARE NO 10/20/2021 9:25 AM [facility] SYMPTOMATIC DEFINED BY CDC NO 10/20/2021 9:25 AM [facility] HOSPITALIZATION STATUS NO 10/20/2021 9:25 AM PHYSICIAN PRACTICE MANAGER [facility] PATIENT IN ICU NO 10/20/2021 9:25 AM PHYSICIAN PRACTICE MANAGER [facility] RESIDENT OF [facility] CARE NO 10/20/2021 9:25 AM PHYSICIAN PRACTICE MANAGER [facility] NASAL STRUCTURE / Unknown 10/20/2021 9:15 AM PHYSICIAN PRACTICE MANAGER us Lino Marks MD MICROBIOLOGY - GENERAL ORDER AGAPITO Final Result [facility] [address] [place] [address], [facility] [address] [place] [address], documented in this encounter Visit Diagnoses Diagnosis Pre-op exam- Primary Preoperative examination, unspecified documented in this encounter Additional Health Concerns Infection Onset Date Last Indicated Resolved Time COVID-19 Rule Out 10/20/2021 10/20/2021 10/20/2021 7:13 PM PHYSICIAN PRACTICE MANAGER documented as of this encounter Care Teams Social Work Program Coordinator Relationship Specialty Start Date End Date Roberto Tran MD [address] [place] [address] PCP - General FAMILY PRACTICE 10/09/21 documented as of this encounter
--- OUTSIDE RECORDS SUMMARY | 2025-09-15 16:38 | XMS_ITS | Clinical Summary ---
Author Organization [facility] Address [address] [place] [address] Care Team Providers Care Nursing Faculty Name Role Phone Roberto Tran MD Primary Care Provider [phone] Allergies Active Allergy Reactions Criticality Noted Date [...] History Relation Comments Cancer Father Hypertension Father [place] Father Hypertension Mother Relation Status Comments Brother [...] on file Legal Sex Male 9:51 PM ACTIVITIES ASSISTANT Gender Identity Not on file Sexual Orientation Not on file Last Filed Vital Signs Vital Sign Reading Time Taken Comments Blood Pressure 183/106 11/14/2021 12:47 PM ACTIVITIES ASSISTANT Pulse 80 11/14/2021 12:47 PM ACTIVITIES ASSISTANT Temperature 36.6 C (97.9 F) 11/14/2021 12:47 PM ACTIVITIES ASSISTANT Respiratory Rate 18 11/14/2021 12:4 7 PM ACTIVITIES ASSISTANT Oxygen Saturation 99% 11/14/2021 12: 47 PM ACTIVITIES ASSISTANT Inhaled Oxygen Concentration - - Weight 95.7 kg (210 lb 15.7 oz) 021 12:47 PM ACTIVITIES ASSISTANT Height 175.3 cm (5' 9) 11/14/2021 12:4 7 PM ACTIVITIES ASSISTANT Body Mass Index 31.16 11/14/2021 12:47 PM ACTIVITIES ASSISTANT Plan of Treatment Health Maintenance Due Date Last Done Comments Colorectal Cancer Screening Colonoscopy (10 Years) 1955 Hepatitis C 1973 DTaP, Tdap and Td Vaccines (1 - Tdap) 1974 Zoster Vaccines (2 of 3) 11/08/2015 09/13/2015 Pneumococcal Vaccine: 50+ Years (2 of 2 - PCV20 or PCV21) 12/20/2016 12/20/2015 COVID-19 Vaccine (1 - season) 2025 Influenza Adult (#1) 2025 08/10/2017, 09/11/2016, 08/08/2016, Additional history exists RSV Immunization or 60+ Years (1 - 1-dose 75+ series) 2030 Hepatitis A Vaccines Aged Out No long er eligible based on patient's age to complete this topic Meningococcal B Vaccine Aged Out No l [...] Gustafson RN Medical Devices Implanted Type Area [employer]ers [employer] Salesperson Device Identifier Shelf Expiration Date Model / Serial / Lot Sst Tl Set Screw Implanted:Qty: 4 on 10/23/2021 by Lino Marks MD at [facility] N/A: Spine Lumbar NEW AGE MEDICAL OR-SETSCRE W / / Sst-Tl 6.5x50 Screw Implanted:Qty: 4 on 10/23/2021 by Lino Marks MD at [facility] N/A: Spine Lumbar NEW AGE MEDICAL -PA-65-5 0 / / F3d Straight Implanted:Qty: 2 on 10/23/2021 by Lino Marks MD at [facility] N/A: Spine Lumbar NEW AGE MEDICAL [id number] 11/09/2025 [id number] / / [id number] Sst 50 Billy Implanted:Qty: 2 on 10/23/2021 by Lino Marks MD at [facility] N/A: Spine Lumbar NEW AGE MEDICAL 10-55-DE-5 0 / / Explanted Type [employer] Salesperson Device Identifier Shelf Expiration Date Model / Serial / Lot Bur Drill Neuro Porum 3.0mm X 3.8mm - [id number] Explanted:Qty: 1 on 10/23/[address] [facility] Drill N/A: Spine Lumbar [employer]SCAR VERONICA [id number] / / Insurance [facility] Advance Directives * Full Code (Latest Code Status on File) Date Activated Date Inactivated Comments 10/23/2021 4:20 PM 10/24/2021 4:29 PM Care Teams Nursing Faculty Relationship Specialty Start Date End Date Roberto Tran MD [address] [address] PCP - General FAMILY PRACTICE 10/09/21
--- NOTE | 2025-09-15 16:40 | PC.NURSE ---
Pt. requesting additional pain medication for 06/03 R. hip pain. RACHELL Dinh notified.
[2025-09-15] MEDS: KETOROLAC 30 MG/ML VIAL (*BKC) IM (16:57)
[2025-09-15] MEDS: TETANUS,DIPHTHERIA,AC PERTUSSIS ADULT (0.5 ML) BOOSTRIX IM (17:14)
[2025-09-15 17:15] VITALS: BP 127/92; PULSE 85; RESP 16; TEMP 36.6; O2SAT 99
--- OUTSIDE RECORDS SUMMARY | 2025-09-15 20:08 | XMS_ITS | Encounter Summary ---
Author Organization [facility] Healthcare Address [address] [place] [address] Care Team Providers Care Saxophone Player Name Role Phone Roberto Tran MD Primary Care Provider Encounter Details Date Type Department Care Team (Late st Contact Info) Description 09/14/2025 Telephone [place] [employer] [facility] at [address] [place] [address] Nicole Gil MA Social History Tobacco Use Types Packs/Day Years Used Date Smoking Tobacco: Former Cigarettes Q uit: 1999 Smokeless Tobacco: Never Comments:Quit smoking in Apr; Alcohol Use Standard Drinks/Week Comments No 0 (1 standard drink = 0.6 oz pur e alcohol) Social Connection and Isolation Panel Answer Date Recorded In a typical week, how many times do you talk on the phone with family, friends, or neighbors? More than three times a week 01/07/2023 How often do you get togethe r with friends or relatives? More than three times a week 01/07/2023 Attends [employer] Services Not on file 01/07 Active Member [...] place to sleep or slept in a senior living (including now)? No 01/07/2023 Personal Safety Answer Date Recorded Have you ever been in or are you currently in a harmful physical or emotional relationship or is someone making you feel afraid or unsafe? Denies 08/24/2024 Sex and Gender Information Value Date Recorded Sex Assigned at Not on file Legal Sex Male 11:49 PM KENNEL SUPERVISOR Gender Identity Not on file Sexual Orientation Not on file documented as of this encounter Miscellaneous Notes * Telephone Encounter - Nicole Gil MA - 09/14/2025 3:31 PM CDT Patient called to make sure we know that he is not on any blood thinner, does not want to be on anyblood thinner, will not go on any blood thinner. documented in this encounter Plan of Treatment Not on file documented as of this encounter Visit Diagnoses Not on filedocumented in this encounter Care Teams Saxophone Player Relationship Specialty Start Date End Date Roberto Tran MD PCP - General Family Medicine 05/20/23 documented as of this encounter
--- OUTSIDE RECORDS SUMMARY | 2025-09-15 20:08 | XMS_ITS | Encounter Summary ---
Author Organization [facility] Address [address] [place] [address] Care Team Providers Care Construction Recruiter Name Role Phone Roberto Tran MD Primary Care Provider [phone] Encounter Details Date Type Department Care Team (Late st Contact Info) Description 10/09/2021 Prep for Procedure [place] Pre-Admission Testing [facility] [place], [place] [id number] Lino Marks MD 3 [facility] [address] [place] [address] Social History Tobacco Use Types Packs/Day Years Used Date Smoking Tobacco: Former Cigarettes 2 30 Smokeless Tobacco: Never Comments:quit cigs 5 years, now vapes with nicotine Alcohol Use Standard Drinks/Week Comments Not Currently 0 (1 standard drink = 0.6 oz pur e alcohol) Sex and Gender Information Value Date Recorded Sex Assigned at Not on file Legal Sex Male 9:51 PM HEALTHCARE EDUCATOR Gender Identity Not on file Sexual Orientation Not on file COVID-19 Exposure Response Date Recorded In the last month, have you been in contact with someone who was confirmed or suspected to have Coronavirus / COVID-19? No / Unsure 10/09/2021 10:16 AM HEALTHCARE EDUCATOR documented as of this encounter Functional Status * Calculated C-SSRS Risk Score (Lifetime/Recent) Answer Date of Assessment Author Status No Risk Indicated 10/09/2021 10:56 AM HEALTHCARE EDUCATOR Sonia Cortes RN Active * [place] Suicide Severity Rating Scale (Screener/Recent Self-Report) Question Answer Date of Assessment Author Status 1. Wish to be (Past 1 Month) No 10/09/2021 10:56 AM HEALTHCARE EDUCATOR Sonia Cortes RN Activ e 2. Non-Specific Active Suicidal Thoughts (Past 1 Month) No 10/09/2021 10:56 AM HEALTHCARE EDUCATOR Sonia Cortes RN Activ e 6. Suicidal Behavior (Lifetime) No 10/09/2021 10:56 AM HEALTHCARE EDUCATOR Sonia Cortes RN Activ e documented as of this encounter Plan of Treatment Not on file documented as of this encounter Results * CORONAVIRUS (COVID 19) (10/20/2021 9:15 AM HEALTHCARE EDUCATOR) SPEC DESCRIPTION NASAL 10/20/20 9:25 AM [facility] CORONAVIRUS SARS COV 2 PCR (RESP) NEGATIVE NEGATIVE 10/20/2021 7:12 PM [facility] Comment: THE SARS-CoV-2 TEST HAS BEEN AUTHORIZED BY THE FDA UNDER AN EUA FOR USE BY AUTHORIZED LABORATORIES. PERFORMED BY NUCLEIC ACID AMPLIFICATION PCR FIRST TEST NO 10/20/2021 9:25 AM [facility] EMPLOYED IN HEALTHCARE NO 10/20/2021 9:25 AM [facility] SYMPTOMATIC DEFINED BY CDC NO 10/20/2021 9:25 AM [facility] HOSPITALIZATION STATUS NO 10/20/2021 9:25 AM HEALTHCARE EDUCATOR [facility] PATIENT IN ICU NO 10/20/2021 9:25 AM HEALTHCARE EDUCATOR [facility] RESIDENT OF [facility] C[facility] NO 10/20/2021 9:25 AM HEALTHCARE EDUCATOR [facility] NASAL STRUCTURE / Unknown 10/20/2021 9:15 AM HEALTHCARE EDUCATOR us Lino Marks MD MICROBIOLOGY - GENERAL ORDER AGAPITO Final Result [facility] [address] [place] [address], [facility] [address] [place] [address], documented in this encounter Visit Diagnoses Diagnosis Pre-op exam- Primary Preoperative examination, unspecified documented in this encounter Additional Health Concerns Infection Onset Date Last Indicated Resolved Time COVID-19 Rule Out 10/20/2021 10/20/2021 10/20/2021 7:13 PM HEALTHCARE EDUCATOR documented as of this encounter Care Teams Construction Recruiter Relationship Specialty Start Date End Date Roberto Tran MD [address] [place] [address] PCP - General FAMILY PRACTICE 10/09/21 documented as of this encounter
--- OUTSIDE RECORDS SUMMARY | 2025-09-15 20:08 | XMS_ITS | Clinical Summary ---
Author Organization [facility] Address [address] [place] [address] Care Team Providers Care Security Rep Name Role Phone Roberto Tran MD Primary Care Provider [phone] Allergies Active Allergy Reactions Criticality Noted Date [...] History Relation Comments Cancer Father Hypertension Father [place] Father Hypertension Mother Relation Status Comments Brother [...] on file Legal Sex Male 9:51 PM ASSISTANT PROFESSOR OF GERMAN Gender Identity Not on file Sexual Orientation Not on file Last Filed Vital Signs Vital Sign Reading Time Taken Comments Blood Pressure 183/106 11/14/2021 12:47 PM ASSISTANT PROFESSOR OF GERMAN Pulse 80 11/14/2021 12:47 PM ASSISTANT PROFESSOR OF GERMAN Temperature 36.6 C (97.9 F) 11/14/2021 12:47 PM ASSISTANT PROFESSOR OF GERMAN Respiratory Rate 18 11/14/2021 12:4 7 PM ASSISTANT PROFESSOR OF GERMAN Oxygen Saturation 99% 11/14/2021 12: 47 PM ASSISTANT PROFESSOR OF GERMAN Inhaled Oxygen Concentration - - Weight 95.7 kg (210 lb 15.7 oz) 021 12:47 PM ASSISTANT PROFESSOR OF GERMAN Height 175.3 cm (5' 9) 11/14/2021 12:4 7 PM ASSISTANT PROFESSOR OF GERMAN Body Mass Index 31.16 11/14/2021 12:47 PM ASSISTANT PROFESSOR OF GERMAN Plan of Treatment Health Maintenance Due Date [...] Gustafson RN Medical Devices Implanted Type Area Irs Agent Device Identifier Shelf Expiration Date Model / Serial / Lot Sst Tl Set Screw Implanted:Qty: 4 on 10/23/2021 by Lino Marks MD at [facility] [place] N/A: Spine Lumbar NEW AGE MEDICAL OR-SETSCRE W / / Sst-Tl 6.5x50 Screw Implanted:Qty: 4 on 10/23/2021 by Lino Marks MD at [facility] [place] N/A: Spine Lumbar NEW AGE MEDICAL -PA-65-5 0 / / F3d Straight Implanted:Qty: 2 on 10/23/2021 by Lino Marks MD at [facility] [place] N/A: Spine Lumbar NEW AGE MEDICAL [id number] 11/09/2025 [id number] / / [id number] Sst 50 Billy Implanted:Qty: 2 on 10/23/2021 by Lino Marks MD at [facility] [place] N/A: Spine Lumbar NEW AGE MEDICAL 10-55-PA-5 0 / / Explanted Type Area Irs Agent Device Identifier Shelf Expiration Date Model / Serial / Lot Bur Drill Neuro [place] 3.0mm X 3.8mm - [id number] Explanted:Qty: 1 on 10/23/[address] [facility] [place] Drill N/A: Spine Lumbar [employer] - DIV ÓSCAR VERONICA [id number] 30 / / Insurance [facility] Advance Directives * Full Code (Latest Code Status on File) Date Activated Date Inactivated Comments 10/23/2021 4:20 PM 10/24/2021 4:29 PM Care Teams Security Rep Relationship Specialty Start Date End Date Roberto Tran MD [address] [place] [address] PCP - General FAMILY PRACTICE 10/09/21
--- OUTSIDE RECORDS SUMMARY | 2025-09-15 20:08 | XMS_ITS | Clinical Summary ---
Author Organization [facility] Address [address] [place] [id number] Care Team Providers Care Spike Maker Name Role Phone Roberto Tran MD Primary Care Provider [phone] Allergies Active Allergy Reactions Criticality Noted Date [...] 90 tablet 3 5 05/10/20 26 Active Hospital, Clinic, or Other Facility Administered Medication Ordered Dose Route Frequency Start Date End Date Status lidocaine (XYLOCAINE) 20 mg/mL (2 %) injection 3 mLIndications:Admini stration of Local Anesthesia 3 mL One-Time Injection 08/25/2025 5 Ended methylPREDNISolone acetate (DEPO-medrol) injection 80 mgIndications:Rotato r cuff insufficiency of left shoulder,Primary osteoarthritis of left shoulder 80 mg intra-artic One-Time Injection 08/25/2025 5 Ended Active Problems Problem Noted Date Diagnosed Date ED (erectile dysfunction) 08/24/2024 Other male erectile dysfunction 07/23/2024 Valvular heart disease 10/03/2023 Overview (10/03/2023): Mild TR on echo 11 January 2023. Acute blood loss anemia 01/07/2023 Acute retention of urine 01/05/2023 BPH with obstruction/lower urinary tract symptom s 12/06/2022 Benign prostatic hyperplasia with urinary obstru ction 11/13/2022 Overview (11/13/2022): Added automatically from request for surgery [id number] Occlusion of gallbladder 04/10/2017 Overview (04/19/2017): Gall bladder occluded Hypertension Overview (10/03/2023): On benazepril 10 b.i.d., Cardizem CD 240 mg daily and Toprol XL to 100 daily. Normal LVEF on echo 07 August 2021. Normal LVEF on echo 11 January 2023. Assessment & Plan (01/23/2022 8:30 AM SYSTEMS ARCHITECT): Discussed that today's blood pressure is quite [...] 2023. Assessment & Plan (01/23/2022 8:32 AM SYSTEMS ARCHITECT): He will try to get records from [...] PM CDT): Apparently saw Dr. Lazcano in [facility] for atrial fibrillation. No echocardiogram was [...] Encounters Date Type Department Care Team Description 09/14/2025 Telephone [place] [employer] Brim Raiser Operator at [facility] [address] [place] [address] Nicole Gil [place] 08/25/2025 11:45 AM CDT Office Visit [facility] [address] [place] [address] Jacqui Scott PA Rotator cuff insufficiency of left shoulder (Primary Dx); Primary osteoarthritis of left shoulder from Last 3 Months Surgical History Surgery [...] than three times a week 01/07/2023 Attends Holiness Services Not on file 01/07 Active Member [...] place to sleep or slept in a fci (including now)? No 01/07/2023 Personal Safety Answer Date Recorded Have you ever been in or are you currently in a harmful physical or emotional relationship or is someone making you feel afraid or unsafe? Denies 08/24/2024 Sex and Gender Information Value Date Recorded Sex Assigned at Not on file Legal Sex Male 11:49 PM SYSTEMS ARCHITECT Gender Identity Not on file Sexual Orientation Not on file Obstetrics History Last Filed Vital Signs Vital Sign Reading Time Taken Comments Blood Pressure 131/81 08/25/2025 11:29 AM CDT Pulse 80 08/25/2025 11:29 AM CDT Temperature 36.7 C (98 F) 2024 11:50 AM CDT Respiratory Rate 18 08/25/2024 6:57 AM CDT Oxygen Saturation 96% 08/25/2024 6:57 AM CDT Inhaled Oxygen Concentration - - Weight 83.5 kg (184 lb) 08/25/2025 11:29 AM CDT Height 170.2 cm (5' 7) 08/25/2025 11:29 AM CDT Body Mass Index 28.82 08/25/2025 11:29 AM CDT Plan of Treatment Health Maintenance Due Date Last Done Comments Colon Cancer Screening-Colonoscopy 1955 Depression Screening 1955 Hepatitis C Screening 1955 DTaP/Tdap/Td Vaccine (1 - Tdap) 1966 Hepatitis B Screening 1973 Zoster Vaccine (2 of 3) 11/08/2015 09/13/2015 Pneumococcal vaccine 65+ (2 of 2 - PCV20 or PCV21) 12/20/2016 12/20/2015 Well Visit 65+ 2020 Influenza Vaccine (#1) 2025 7, 09/11/2016, 08/08/2016, Additional history exists Fall Risk Assessment 08/25/2025 08/25/2024 Prostate Cancer Screening-PSA Discontinued 11/14/2022 Abdominal Aortic Aneurysm (A AA) Screen Completed 01/08/2023, 01/06/2023 Medical Devices Implanted Type Area Movement Therapist Device Identifier Shelf Expiration Date Model / Serial / Lot [place] [employer] Ams 700 Kit Accessory Penile Prosthesis [id number] - [id number] Implanted:Qty: 1 on 08/24/2024 by James Small MD at [facility] N/A: Penis [place] [employer] [id number] 07/06/2029 [id number] / / [id number] [employer] [employer] Ams 700 Lgx Ms Pump 18cm 3 Piece Inflatable Preconnect Infrapubic [id number] - [id number] Implanted:Qty: 1 on 08/24/2024 by James Small MD at [facility] N/A: Penis [place] [employer] [id number] 05/18/2026 [id number] / / [id number] [place] [employer] Ams 700 Ms Pump Preconnect Inflatable [place] Prosthesis 65ml [id number] - [id number] Implanted:Qty: 1 on 08/24/2024 by James Small MD at [facility] N/A: Penis [place] [employer] [id number] 04/21/2026 [id number] / / [id number] Procedures Procedure Name Priority Date/Time Associated Diagnosis Comments VT ARTHROCENTESIS ASPIR&/INJ MAJOR JT/BURSA W/O US Routine 08/25/2025 11:45 AM CDT 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 CT ABDOMEN PELVIS WO CONTRAST IP Routine 01/08/2023 1:52 PM SYSTEMS ARCHITECT PSA DIAGNOSTIC Routine 11/14/2022 11:55 AM SYSTEMS ARCHITECT Elevated PSA from Last 3 Months or Most Recently Relevant to Health Maintenance Results * VT ARTHROCENTESIS ASPIR&/INJ MAJOR JT/BURSA W/O US (08/25/2025 11:45 AM CDT) Narrative Jacqui Scott PA - 08/25/2025 11:45 AM CDT Jacqui Scott PA 08/25/2025 11:48 AM Large Joint (Hip, Knee, Shoulder) Injection: [...] Abdomen Pelvis WO Contrast (01/08/2023 1:52 PM SYSTEMS ARCHITECT) Anatomical Region Laterality Modality Body N/A Computed Tomogra phy 01/08/2023 3:03 PM SYSTEMS ARCHITECT Impressions 01/08/2023 3:03 PM SYSTEMS ARCHITECT 1. DEPENDENT ATELECTASIS IN THE LUNG BASES [...] Sin Contreras M.D. Narrative 01/08/2023 3:03 PM SYSTEMS ARCHITECT EXAMINATION: CT ABDOMEN PELVIS WO CONTRAST DATE: [...] Sin Contreras M.D. us Deidre Rodriguez MD IM CT PROCEDURES Final Resul t * PSA diagnostic (11/14/2022 11:55 AM SYSTEMS ARCHITECT) PSA-Total 0.88 <=5.40 ng/mL JAROD VALLEJO Comment: [...] revised 22. Blood 11/14/2022 11:5 5 AM SYSTEMS ARCHITECT 11/14/2022 11:55 AM SYSTEMS ARCHITECT us James Small MD LAB BLOOD ORDERABLES Fi nal Result JAROD VALLEJO [address] Department [place] [address] from Last 3 Months or Most Recently Relevant to Health [place] [address] COMMERCIAL GENERIC MEDICARE [place] [address] [address] [facility] SUPPLEMENT Advance Directives For more information, please contact: [phone] * Full Code (Latest Code Status on File) Date Activated Date Inactivated Comments 08/24/2024 12:18 PM 08/25/2024 2:53 PM * Full Code Date Activated Date Inactivated Comments 01/05/2023 8:07 AM 01/14/2023 7:38 PM * Full Code Date Activated Date Inactivated Comments 12/06/2022 11:29 AM 12/07/2022 7:16 PM Care Teams Spike Maker Relationship Specialty Start Date End Date Roberto Tran MD PCP - General Family Medicine 05/20/23
== END 2025-09-15 17:25 | disposition home or self-care (01) ==
PROVIDERS: Emergency Provider Physician Assistant; PCP Family Medicine
DX: S51.812A Laceration without foreign body of left forearm, initial encounter (principal); Z23 Encounter for immunization; E78.2 Mixed hyperlipidemia; K21.9 Gastro-esophageal reflux disease without esophagitis; M16.11 Unilateral primary osteoarthritis, right hip; M17.11 Unilateral primary osteoarthritis, right knee; Z90.79 Acquired absence of other genital organ(s); Z87.891 Personal history of nicotine dependence; M47.812 Spondylosis without myelopathy or radiculopathy, cervical region; Z79.899 Other long term (current) drug therapy; W11.XXXA Fall on and from ladder, initial encounter
CPT/HCPCS: 70450; 71250; 72125; 73090; 73502; 74176; 90471; 90715; 96372; 99284; A9270; J1885

== ENCOUNTER 2025-09-23 02:01 | Day surgery (SDC) | payer MEDICARE, OTHER, SELFPAY ==
--- OUTSIDE RECORDS SUMMARY | 2004-12-04 09:30 | XMS_ITS | Continuity of Care Document ---
Author Organization [facility] Address [address] [place] [address] [place] [address] Phone Care Team Providers Care Blender Laborer Name Role Phone Calos Silva MD Unavailable Unavailable Advance Directives Directive Yes / No Effective Date File Name No Information Encounters Encounter Description Practice Location Reason(s) For Visit Diagnoses Date Provider Providers Copied on Encounter [facility], [address], [place], [place], [id number], [place] tel:[phone] [address] Rey TALLEY Professional No Information 0-200 5 Shira Live. [address] [facility], [facility], [place], [place], [id number], [place]. tel:[phone] Family History Family Member Type Diagnosis Age At Onset No Information Payers Payer name Insurance type Covered constitution party ID Authoriza tion(s) [employer] SOI CI [id number] Social History Type Description Quantity Date Captured [...]
[2025-09-13 11:54] VITALS: BMI 27.4
--- NOTE | 2025-09-14 15:27 | PC.NURSE ---
Received clearance from Dr. Trent. They still had that patient should be on Xarelto/Eliquis but cleared pt for procedure. I called pt and he states he told the PA in Dr. Velez office that he was no longer on the med since his ablation. He states he will not go back on it as he is no longer in AFIB. He will call the office and let them know.
--- OUTSIDE RECORDS SUMMARY | 2025-09-23 02:03 | XMS_ITS | Encounter Summary ---
Author Organization [facility] Address [address] [place] [address] Care Team Providers Care Vice President Of Consulting Services Name Role Phone Roberto Tran MD Primary Care Provider Encounter Details Date Type Department Care Team (Late st Contact Info) Description 10/09/2021 Prep for Procedure [place] Pre-Admission Testing [facility] [place] [id number] Lino Marks MD [address] [facility] [address] [place] [address] Social History Tobacco Use Types Packs/Day Years Used Date Smoking Tobacco: Former Cigarettes 2 30 Smokeless Tobacco: Never Comments:quit cigs 5 years, now vapes with nicotine Alcohol Use Standard Drinks/Week Comments Not Currently 0 (1 standard drink = 0.6 oz pur e alcohol) Sex and Gender Information Value Date Recorded Sex Assigned at Not on file Legal Sex Male 9:51 PM LEGAL INTERN Gender Identity Not on file Sexual Orientation Not on file COVID-19 Exposure Response Date Recorded In the last month, have you been in contact with someone who was confirmed or suspected to have Coronavirus / COVID-19? No / Unsure 10/09/2021 10:16 AM LEGAL INTERN documented as of this encounter Functional Status * Calculated C-SSRS Risk Score (Lifetime/Recent) Answer Date of Assessment Author Status No Risk Indicated 10/09/2021 10:56 AM LEGAL INTERN Sonia Cortes RN Active * [place] Suicide Severity Rating Scale (Screener/Recent Self-Report) Question Answer Date of Assessment Author Status 1. Wish to be (Past 1 Month) No 10/09/2021 10:56 AM LEGAL INTERN Sonia Cortes RN Activ e 2. Non-Specific Active Suicidal Thoughts (Past 1 Month) No 10/09/2021 10:56 AM LEGAL INTERN Sonia Cortes RN Activ e 6. Suicidal Behavior (Lifetime) No 10/09/2021 10:56 AM LEGAL INTERN Sonia Cortes RN Activ e documented as of this encounter Plan of Treatment Not on file documented as of this encounter Results * CORONAVIRUS (COVID 19) (10/20/2021 9:15 AM LEGAL INTERN) SPEC DESCRIPTION NASAL 10/20/20 9:25 AM [facility] CORONAVIRUS SARS COV 2 PCR (RESP) NEGATIVE NEGATIVE 10/20/2021 7:12 PM [facility] Comment: THE SARS-CoV-2 TEST HAS BEEN AUTHORIZED BY THE FDA UNDER AN EUA FOR USE BY AUTHORIZED LABORATORIES. PERFORMED BY NUCLEIC ACID AMPLIFICATION PCR FIRST TEST NO 10/20/2021 9:25 AM [facility] EMPLOYED IN HEALTHCARE NO 10/20/2021 9:25 AM [facility] SYMPTOMATIC DEFINED BY CDC NO 10/20/2021 9:25 AM [facility] HOSPITALIZATION STATUS NO 10/20/2021 9:25 AM LEGAL INTERN [facility] PATIENT IN ICU NO 10/20/2021 9:25 AM LEGAL INTERN [facility] RESIDENT OF [facility] CARE NO 10/20/2021 9:25 AM LEGAL INTERN [facility] NASAL STRUCTURE / Unknown 10/20/2021 9:15 AM LEGAL INTERN us Lino Marks MD MICROBIOLOGY - GENERAL ORDER AGAPITO Final Result [facility] [address] [place] [address], [facility] [address] [place] [address], documented in this encounter Visit Diagnoses Diagnosis Pre-op exam- Primary Preoperative examination, unspecified documented in this encounter Additional Health Concerns Infection Onset Date Last Indicated Resolved Time COVID-19 Rule Out 10/20/2021 10/20/2021 10/20/2021 7:13 PM LEGAL INTERN documented as of this encounter Care Teams Vice President Of Consulting Services Relationship Specialty Start Date End Date Roberto Tran MD [address] [address] PCP - General FAMILY PRACTICE 10/09/21 documented as of this encounter
--- OUTSIDE RECORDS SUMMARY | 2025-09-23 02:03 | XMS_ITS | Clinical Summary ---
Author Organization [facility] Address [address] [place] [address] Care Team Providers Care Senior Interactive Producer Name Role Phone Roberto Tran MD Primary Care Provider [phone] Allergies Active Allergy Reactions Criticality Noted Date [...] History Relation Comments Cancer Father Hypertension Father [place] Father Hypertension Mother Relation Status Comments Brother [...] on file Legal Sex Male 9:51 PM ETIOLOGIST Gender Identity Not on file Sexual Orientation Not on file Last Filed Vital Signs Vital Sign Reading Time Taken Comments Blood Pressure 183/106 11/14/2021 12:47 PM ETIOLOGIST Pulse 80 11/14/2021 12:47 PM ETIOLOGIST Temperature 36.6 C (97.9 F) 11/14/2021 12:47 PM ETIOLOGIST Respiratory Rate 18 11/14/2021 12:4 7 PM ETIOLOGIST Oxygen Saturation 99% 11/14/2021 12: 47 PM ETIOLOGIST Inhaled Oxygen Concentration - - Weight 95.7 kg (210 lb 15.7 oz) 021 12:47 PM ETIOLOGIST Height 175.3 cm (5' 9) 11/14/2021 12:4 7 PM ETIOLOGIST Body Mass Index 31.16 11/14/2021 12:47 PM ETIOLOGIST Plan of Treatment Health Maintenance Due Date [...] Gustafson RN Medical Devices Implanted Type Area Business Services Intern Device Identifier Shelf Expiration Date Model / Serial / Lot Sst Tl Set Screw Implanted:Qty: 4 on 10/23/2021 by Lino Marks MD at [facility] N/A: Spine Lumbar NEW AGE MEDICAL OR-SETSCRE W / / Sst-Tl 6.5x50 Screw Implanted:Qty: 4 on 10/23/2021 by Lino Marks MD at [facility] N/A: Spine Lumbar NEW AGE MEDICAL -PA-65-5 0 / / F3d Straight Implanted:Qty: 2 on 10/23/2021 by Lino Marks MD at [facility] N/A: Spine Lumbar NEW AGE MEDICAL [id number] 11/09/2025 [id number] / / [id number] Sst 50 Billy Implanted:Qty: 2 on 10/23/2021 by Lino Marks MD at [facility] N/A: Spine Lumbar NEW AGE MEDICAL 10-55-RI-5 0 / / Explanted Type Area Business Services Intern Device Identifier Shelf Expiration Date Model / Serial / Lot Bur [employer] Neuro [place] 3.0mm X 3.8mm - [id number] Explanted:Qty: 1 on 10/23/2021 at [facility] [place] N/A: Spine Lumbar [employer] - DIV ÓSCAR VERONICA 5820-107-5 30 / / Insurance [facility] Advance Directives * Full Code (Latest Code Status on File) Date Activated Date Inactivated Comments 10/23/2021 4:20 PM 10/24/2021 4:29 PM Care Teams Senior Interactive Producer Relationship Specialty Start Date End Date Roberto Tran MD [address] [place] [address] PCP - General FAMILY PRACTICE 10/09/21
--- OUTSIDE RECORDS SUMMARY | 2025-09-23 02:03 | XMS_ITS | Clinical Summary ---
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 Normal LVEF on echo 07 August 2021. Normal LVEF on echo 11 January 2023. Assessment & Plan (01/23/2022 8:30 AM CANTILEVER CRANE OPERATOR): Discussed that today's blood pressure is [...] 2023. Assessment & Plan (01/23/2022 8:32 AM CANTILEVER CRANE OPERATOR): He will try to get records [...] PM CDT): Apparently saw Dr. Lazcano in [facility] for atrial fibrillation. No echocardiogram was ever [...] Type Department Care Team Description 09/14/2025 Telephone [facility] G[facility] Consultant at [facility] [address] [facility] [address] [place] [address] Nicole Gil [place] 08/25/2025 11:45 AM CDT Office Visit [facility] [address] [facility] [address] [place] [address] Jacqui Scott PA Rotator cuff [...] place to sleep or slept in a long-term (including now)? No 01/07/2023 Personal Safety Answer Date Recorded Have you ever been in or are you currently in a harmful physical or emotional relationship or is someone making you feel afraid or unsafe? Denies 08/24/2024 Sex and Gender Information Value Date Recorded Sex Assigned at Not on file Legal Sex Male 11:49 PM CANTILEVER CRANE OPERATOR Gender Identity Not on file Sexual [...] 01/08/2023, 01/06/2023 Medical Devices Implanted Type Area Manager Advanced Device Identifier Shelf Expiration Date Model / Serial / Lot [employer] Mile Ams 700 Kit Accessory Penile Prosthesis [id number] - [id number] Implanted:Qty: 1 on 08/24/2024 by James Small MD at [facility] N/A: Penis [employer] Mile [id number] 07/06/2029 [id number] / / [id number] [employer] Mile Ams 700 Lgx Ms Pump 18cm 3 Piece Inflatable Preconnect Infrapubic [id number] - [id number] Implanted:Qty: 1 on 08/24/2024 by James Small MD at [facility] N/A: Penis [employer] Mile [id number] 05/18/2026 [id number] / / [id number] [employer] Mile Ams 700 Ms Pump Preconnect Inflatable [place] Prosthesis 65ml [id number] - [id number] Implanted:Qty: 1 on 08/24/2024 by James Small MD at [facility] N/A: Penis [employer] Mile [id number] 04/21/2026 [id number] / / [id number] Procedures Procedure Name Priority Date/Time Associated Diagnosis Comments MA ARTHROCENTESIS ASPIR&/INJ MAJOR JT/BURSA W/O US Routine 08/25/2025 11:45 AM CDT 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 DEPENDENT ATELECTASIS IN THE LUNG [...] Sin Contreras M.D. Narrative 01/08/2023 3:03 PM CANTILEVER CRANE OPERATOR EXAMINATION: CT ABDOMEN PELVIS WO CONTRAST [...] t * PSA diagnostic (11/14/2022 11:55 AM CANTILEVER CRANE OPERATOR) PSA-Total 0.88 <=5.40 ng/mL JAROD VALLEJO [...] revised 22. Blood 11/14/2022 11:5 5 AM CANTILEVER CRANE OPERATOR 11/14/2022 11:55 AM CANTILEVER CRANE OPERATOR us James Small MD LAB BLOOD ORDERABLES Fi nal Result JAROD VALLEJO [address] [address] Department [place] [address] from Last 3 Months or Most Recently Relevant to Health Maintenance Insurance MEDICARE COMMERCIAL GENERIC MEDICARE [place] [id number] [facility] Advance Directives For more information, please contact: [phone] * Full Code (Latest Code Status on File) Date Activated Date Inactivated Comments 08/24/2024 12:18 PM 08/25/2024 2:53 PM * Full Code Date Activated Date Inactivated Comments 01/05/2023 8:07 AM 01/14/2023 7:38 PM * Full Code Date Activated Date Inactivated Comments 12/06/2022 11:29 AM 12/07/2022 7:16 PM Care Teams Vacuum Truck Driver Relationship Specialty Start Date End Date Roberto Tran MD PCP - General Family Medicine 05/20/23
[2025-09-23 07:22] VITALS: BP 102/79; PULSE 81; RESP 19; TEMP 36.2; O2SAT 100
--- NOTE | 2025-09-23 07:25 | WPDANESEPPF ---
Anes - Initial Pre Proc Eval Procedure: Operation Date: 09/23/25 08:30 Proposed Procedures p Diagnostic Colonoscopy - Jayden Mulligan MD Date/Time: 09/23/25 07:25 Surgeon: Jayden Mulligan MD Pre Op Diagnosis: Abnormal findings on diagnostic imaging of other s Patient Data Age: 70 Gender: M Height: 1.73 m Weight: 80.4 kg Last Vital Signs Temp 97.2 F L 09/23/25 07:22 Pulse 81 09/23/25 07:22 Resp 19 09/23/25 07:22 BP 102/79 09/23/25 07:22 Pulse Ox 100 09/23/25 07:22 O2 Del Method Room Air 09/23/25 07:22 Allergies Allergy/AdvReac Type Severity Reaction Status Date / Time venom-honey bee Allergy Severe CARRIES Verified 09/23/25 07:20 EPI PEN levofloxacin Allergy Mild Unknown Verified 09/23/25 07:20 iodine Allergy Unknown Unknown Verified 09/23/25 07:20 Home Medications ?Medication ?Instructions ?Recorded ?Confirmed ?Type vilazodone 10 mg tablet (Viibryd) 10 mg PO DAILY 10/13/19 09/23/25 History naloxone 4 mg/actuation nasal 4 mg intranasal Q2M #2 ea 10/14/19 09/13/25 Rx spray (Narcan) cetirizine 10 mg capsule (All Day 10 mg PO DAILY PRN allergy symptoms 04/05/21 09/23/25 History Allergy (cetirizine)) echinacea 380 mg capsule 380 mg PO DAILY 04/05/21 09/23/25 History trazodone 50 mg tablet 50 mg PO QHS PRN insomnia 04/05/21 09/13/25 History vitamin E (dl, acetate) 180 mg 45 mg PO DAILY 04/05/21 09/23/25 History (400 unit) capsule metoprolol succinate 50 mg 50 mg PO DAILY 02/22/22 09/23/25 History tablet,extended release 24 hr clonazepam 0.5 mg tablet 0.5 mg PO DAILY PRN anxiety 06/26/22 09/13/25 History lisinopril 5 mg tablet 5 mg PO .QD #30 tabs 12/09/23 09/23/25 Rx turmeric 400 mg capsule 1,400 mg PO BID 01/30/24 09/23/25 History ferrous sulfate 325 mg (65 mg 325 mg PO DAILY iron deficiency 02/05/24 09/23/25 Rx iron) tablet,delayed release #90 tabs cyclobenzaprine 10 mg tablet 10 mg PO TID #270 tabs 09/21/24 09/23/25 Rx montelukast 10 mg tablet See Rx Instructions .Route 03/02/25 09/23/25 Rx .COMPLEX #90 tabs albuterol sulfate 2.5 mg/3 mL 2.5 mg (3 mL) inhalation Q4-6H PRN 05/03/25 09/13/25 Rx (0.083 %) solution for nebulization shortness of breath or wheezing #90 mL albuterol sulfate 90 mcg/actuation See Rx Instructions .Route 06/16/25 09/13/25 Rx aerosol inhaler .COMPLEX #20.1 ea omeprazole 40 mg capsule,delayed See Rx Instructions .Route 08/11/25 09/23/25 Rx release .COMPLEX #90 caps fluticasone 250 mcg-salmeterol 50 See Rx Instructions .Route 08/18/25 09/13/25 Rx mcg/dose blistr powdr for .COMPLEX #60 ea inhalation celecoxib 50 mg capsule See Rx Instructions .Route 08/23/25 09/23/25 Rx .COMPLEX #60 caps varenicline tartrate 0.5 mg (11)-1 See Rx Instructions PO PER PKG DIR 08/30/25 09/23/25 Rx mg (42) tablets in a dose pack #53 ea (Chantix Starting Month Box) hydrocodone 7.5 mg-acetaminophen 1 tablet PO Q6H PRN pain #120 tabs 09/06/25 09/23/25 Rx 325 mg tablet semaglutide (weight loss) 0.5 0.5 mg (0.5 mL) subcut WEEKLY #2 mL 09/10/25 09/13/25 Rx mg/0.5 mL subcutaneous pen injector (Wegovy) fish,flax,primrose,borag 1 cap PO DAILY 09/13/25 09/23/25 History oils-om3,6,9 no5 400 mg-400 mg-200 mg capsule Patient hx anesthesia problems: none Family hx anesthesia problems: none Results Review: All pre-operative results and documents have been reviewed as part of the pre-operative evaluation. [facility] Past Medical History Medical History GERD (gastroesophageal reflux disease) Abnormal CT scan Hospital discharge follow-up Diarrhea Pain, abdominal Hand abrasion, non-infected RUQ abdominal pain Sinusitis Weight gain Elevated glucose Elevated glucose Mixed hyperlipidemia Perla catheter in place Erectile dysfunction BMI 34.0-34.9,adult Osteoarthritis of right knee Osteoarthritis of right hip BMI greater than 30 BMI 32.0-32.9,adult BMI 31.0-31.9,adult BMI 29.0-29.9,adult Tobacco abuse BMI 28.0-28.9,adult BPH associated with nocturia Chronic left shoulder pain Chronic radicular lumbar pain High potassium Swelling Therapeutic opioid induced constipation Surgical History Surgical History History of prostatectomy H/O Spinal surgery Family History Family History Father Hypertension Family history of malignant neoplasm Mother Hypertension Family history of coronary artery disease Sibling No problems noted. Social History Social History Smoking status: Current every day smoker Tobacco type: cigarettes Second hand tobacco smoke exposure: Yes Smoking end date: 06/28/24 Additional smoking assessment comments: 27 years Alcohol intake: never Substance use: never Substance use type: does not use Do You Feel Safe in your Home?: Yes Lack of Transportation: No Lack of Food: Never True Current Housing: I Have Housing Concerned About Future Housing: No Difficulty Paying Gas/Electric Bills: No Difficulty Paying for Meds: No Currently Unemployed: No Education: Trade/Vocational Certificate Difficulty w/ Childcare or Family Care: No Living arrangements: with family Occupation/Education: retired 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 HTN, hyperlipidemia, hx of aflutter, s/p ablation, active w ladders (recently fell, did not hit head), no cp or sob. Informed Consent: The patient's anesthetic plan and its attendant risks and benefits were discussed with the patient/family/POA. Questions were solicited and answers provided to the satisfaction of the patient/family/POA.
[2025-09-23] MEDS: LACTATED RINGERS 1,000 ML 150 ML IV CONT (07:34)
--- NOTE | 2025-09-23 08:05 | PM.HPGS ---
History of Present Illness History of Present Illness Consent: Risks, benefits, and alternatives have been discussed and questions answered. Patient agrees to proceed with procedure. Chief complaint: Abnormal findings on diagnostic imaging of other s Narrative: Jose David Perez is a 70 year old male here for colonoscopy, last one 2014. 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 Review of Systems Review of Systems: All systems reviewed & are unremarkable except as noted in HPI and below PMFSH Past Medical History Medical History (Updated 09/23/25 @ 08:06 by Jayden Mulligan MD) Abnormal CT scan, colon Colon cancer screening GERD (gastroesophageal reflux disease) Abnormal CT scan Hospital discharge follow-up Diarrhea Pain, abdominal Hand abrasion, non-infected RUQ abdominal pain Sinusitis Weight gain Elevated glucose Elevated glucose Mixed hyperlipidemia Perla catheter in place Erectile dysfunction BMI 34.0-34.9,adult Osteoarthritis of right knee Osteoarthritis of right hip BMI greater than 30 BMI 32.0-32.9,adult BMI 31.0-31.9,adult BMI 29.0-29.9,adult Tobacco abuse BMI 28.0-28.9,adult BPH associated with nocturia Chronic left shoulder pain Chronic radicular lumbar pain High potassium Swelling Therapeutic opioid induced constipation Surgical History Surgical History History of prostatectomy H/O Spinal surgery Family History Family History Father Hypertension Family history of malignant neoplasm Mother Hypertension Family history of coronary artery disease Sibling No problems noted. Social History Social History Smoking status: Current every day smoker Tobacco type: cigarettes Second hand tobacco smoke exposure: Yes Smoking end date: 06/28/24 Additional smoking assessment comments: 27 years Alcohol intake: never Substance use: never Substance use type: does not use Do You Feel Safe in your Home?: Yes Lack of Transportation: No Lack of Food: Never True Current Housing: I Have Housing Concerned About Future Housing: No Difficulty Paying Gas/Electric Bills: No Difficulty Paying for Meds: No Currently Unemployed: No Education: Trade/Vocational Certificate Difficulty w/ Childcare or Family Care: No Living arrangements: with family Occupation/Education: retired 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 Gender identity (if verbalized by the patient): Male Spiritual care concerns: No Meds Home Medications and Allergies Home Medications ?Medication ?Instructions ?Recorded ?Confirmed ?Type vilazodone 10 mg tablet (Viibryd) 10 mg PO DAILY 10/13/19 09/23/25 History naloxone 4 mg/actuation nasal 4 mg intranasal Q2M #2 ea 10/14/19 09/13/25 Rx spray (Narcan) cetirizine 10 mg capsule (All Day 10 mg PO DAILY PRN allergy symptoms 04/05/21 09/23/25 History Allergy (cetirizine)) echinacea 380 mg capsule 380 mg PO DAILY 04/05/21 09/23/25 History trazodone 50 mg tablet 50 mg PO QHS PRN insomnia 04/05/21 09/13/25 History vitamin E (dl, acetate) 180 mg 45 mg PO DAILY 04/05/21 09/23/25 History (400 unit) capsule metoprolol succinate 50 mg 50 mg PO DAILY 02/22/22 09/23/25 History tablet,extended release 24 hr clonazepam 0.5 mg tablet 0.5 mg PO DAILY PRN anxiety 06/26/22 09/13/25 History lisinopril 5 mg tablet 5 mg PO .QD #30 tabs 12/09/23 09/23/25 Rx turmeric 400 mg capsule 1,400 mg PO BID 01/30/24 09/23/25 History ferrous sulfate 325 mg (65 mg 325 mg PO DAILY iron deficiency 02/05/24 09/23/25 Rx iron) tablet,delayed release #90 tabs cyclobenzaprine 10 mg tablet 10 mg PO TID #270 tabs 09/21/24 09/23/25 Rx montelukast 10 mg tablet See Rx Instructions .Route 03/02/25 09/23/25 Rx .COMPLEX #90 tabs albuterol sulfate 2.5 mg/3 mL 2.5 mg (3 mL) inhalation Q4-6H PRN 05/03/25 09/13/25 Rx (0.083 %) solution for nebulization shortness of breath or wheezing #90 mL albuterol sulfate 90 mcg/actuation See Rx Instructions .Route 06/16/25 09/13/25 Rx aerosol inhaler .COMPLEX #20.1 ea omeprazole 40 mg capsule,delayed See Rx Instructions .Route 08/11/25 09/23/25 Rx release .COMPLEX #90 caps fluticasone 250 mcg-salmeterol 50 See Rx Instructions .Route 08/18/25 09/13/25 Rx mcg/dose blistr powdr for .COMPLEX #60 ea inhalation celecoxib 50 mg capsule See Rx Instructions .Route 08/23/25 09/23/25 Rx .COMPLEX #60 caps varenicline tartrate 0.5 mg (11)-1 See Rx Instructions PO PER PKG DIR 08/30/25 09/23/25 Rx mg (42) tablets in a dose pack #53 ea (Chantix Starting Month Box) hydrocodone 7.5 mg-acetaminophen 1 tablet PO Q6H PRN pain #120 tabs 09/06/25 09/23/25 Rx 325 mg tablet semaglutide (weight loss) 0.5 0.5 mg (0.5 mL) subcut WEEKLY #2 mL 09/10/25 09/13/25 Rx mg/0.5 mL subcutaneous pen injector (Vidyo) fish,flax,primrose,borag 1 cap PO DAILY 09/13/25 09/23/25 History oils-om3,6,9 no5 400 mg-400 mg-200 mg capsule Allergies Allergy/AdvReac Type Severity Reaction Status Date / Time venom-honey bee Allergy Severe CARRIES Verified 09/23/25 07:20 EPI PEN levofloxacin Allergy Mild Unknown Verified 09/23/25 07:20 iodine Allergy Unknown Unknown Verified 09/23/25 07:20 Vital Signs Vital Signs - 24 hr 09/23/25 07:22 Temperature 97.2 F L Pulse Rate 81 Respiratory Rate 19 Blood Pressure 102/79 Pulse Oximetry 100 Oxygen Delivery Room Air Exam Const: General: comfortable and no acute distress HENMT: Face/Nose/Sinus: Normal nares present Eyes: General: appearance normal, both eyes and all related structures Neck: Neck: no JVD Resp: Auscultation: clear to auscultation bilaterally Cardio: Rate: regular rate Rhythm: regular rhythm GI: Inspection: non-distended GI Palp: Yes Soft to palpation Skin: General skin exam: normal color Extrem: General: normal to inspection Psych: Mental Status: mental status grossly normal Assessment and Plan Assessment and plan (1) Colon cancer screening: Code(s): Z12.11 - Encounter for screening for malignant neoplasm of colon Status: Acute Assessment and Plan: colonoscopy (2) Abnormal CT scan, colon: Code(s): R93.3 - Abnormal findings on diagnostic imaging of other parts of digestive tract Status: Acute
[2025-09-23 08:17] VITALS: BP 105/54; PULSE 73; RESP 15; O2SAT 100
[2025-09-23 08:27] VITALS: BP 82/48; PULSE 73; RESP 15; O2SAT 100
[2025-09-23 08:37] VITALS: BP 103/63; PULSE 73; RESP 15; O2SAT 100
== END 2025-09-23 08:40 | disposition home or self-care (01) ==
PROVIDERS: PCP Family Medicine; Visit Provider Internal Medicine Gastroenterology
PROC: 0DJD8ZZ Inspection of Lower Intestinal Tract, Via Natural or Artificial Opening Endoscopic (ICD-10-PCS; CPT 45378; principal; 2025-09-23 08:30)
DX: K57.30 Diverticulosis of large intestine without perforation or abscess without bleeding (principal); K64.8 Other hemorrhoids
CPT/HCPCS: 45378; J2704; J7120